=== PATIENT | female | born 1970 | race Caucasian/White ===

== ENCOUNTER 2017-12-24 10:06 | Inpatient (IN) | payer OTHER ==
[~2017-12-24] VITALS: Ht 165.1 cm; Wt 127.3 kg
[2017-12-24] MEDS ORDERED: LANTUS100 UNITS/ SUB-Q (11:17)
[2017-12-24] MEDS ORDERED: NOVOLOG100 UNIT/2 (11:17)
[2017-12-24] MEDS ORDERED: FIORICET PO (11:20)
[2017-12-24] MEDS ORDERED: FENTANYL1 EAC5 TD (11:21)
[2017-12-24] MEDS ORDERED: LEXAPRO20 MG PO (11:21)
[2017-12-24] MEDS ORDERED: NORCO 5-325 TA1 EACH PO (11:22)
[2017-12-24] MEDS ORDERED: LYRICA150 MG PO (11:22)
[2017-12-24] MEDS ORDERED: PROMETHAZINE HC25 M1 PO (11:22)
[2017-12-24] MEDS ORDERED: RANITIDINE HCL150 M1 PO (11:23)
[2017-12-24] MEDS ORDERED: TIZANIDINE HCL4 MG PO (11:23)
--- NOTE | 2017-12-24 13:30 | NUR ---
PT ARRIVED FROM ED VIA STRETCHER, FULL ASSIST TRANSFER TO HOSPITAL BED. PT IS ALERT AND ORIENTED, REPORTING 9/10 BACK, NECK, AND HEADACHE PAIN, MEDICATED WITH IV FENTANYL. RIGHT SIDED FACIAL DROOP NOTED WITH RIGHT SIDE FLACCID. SPEECH REMAINS INTACT. BEDSIDE SWALLOW EVAL COMPLETED, NO S/S OF DIFFICULTY SWALLOWING OR ASPIRATION. EYES PERRLA, MILD NYSTAGMUS NOTED OF BILETERAL EYES WHEN LOOKING TO LEFT. BARNES IN PLACE, DRAINING CLEAR YELLOW URINE. RIGHT CHEST PORT ACCESSED, FLUSHES WELL, BLOOD RETURN NOTED. DAUGHTER IN LAW AT BEDSIDE. CALL LIGHT WITHIN REACH.
--- NOTE | 2017-12-24 15:21 | NUR ---
MADE A ICE PACK FOR PATIENT.
--- NOTE | 2017-12-24 15:45 | NUR ---
PATIENT FINISHED WITH MEAL, DAUGHTER SALOME BROUGHT PATIENT A BLIZZARD FROM [employer], THIS CAREER REPRESENTATIVE CHECKED WITH RN JAMES TO SEE IF SHE COULD HAVE IT, PATIENT IS ON ADA DIET. RN AGREED, SINCE PATIENT EATS THIS ITEM AT HOME ON OCCASION. FRESH WATER ALSO GOVEN CALL LIGHT IN REACH
--- NOTE | 2017-12-24 16:10 | NUR ---
PATIENT LYING ON RIGHT SIDE, FAMILY IN ROOM. REPORTS SHE FELT A "POP" IN THE BACK OF HER HEAD, CRYING HEAVILY. RN JAMES NOTIFIED. THIS PSYCHOLOGICAL EXAMINER TOOK VITALS JAMES TALKED WITH PATIENT. CALL LIGHT IN REACH.
--- NOTE | 2017-12-24 16:32 | NUR ---
PT CALLED REPORTING THAT SHE MOVED AND FELT A "POP" IN HER NECK. IMMEDIATELY AFTER FELT A SEVERE 10/10 BURNING SENSATION IN HER HEAD, BLURRED VISION WITH BLACK SPOTS, AND TINGLING IN LEFT HAND. PT SPEECH STILL INTACT, MOVEMENT OF LEFT SIDE NORMAL STRENGTH. PT STILL HAS GOOD MOVEMENT OF NECK WITHOUT INCREASE OF PAIN. VS BP: 107/59, HR: 74, RR:24, O2 SAT: 100% ON RA. BG 71. PT APPEARS VERY ANXIOUS AND CRYING. NOTIFIED DR. GARRIDO, RECIEVED TELEPHONE ORDER FOR PRN ATIVAN. PT MEDICATED AT THIS TIME WITH ATIVAN AND FENTANYL. CALL LIGHT WITHIN REACH.
--- NOTE | 2017-12-24 17:10 | NUR ---
PATIENT LYING IN BED, EYES CLOSED. PATIENT MOANING LIGHTLY, REPEATING "IT HURTS I CAN'T TAKE THIS ANYMORE" VITALS AND I/OS CHARTED. BARNES EMPTIED. CALL LIGHT IN REACH NO OTHER NEEDS AT THIS TIME
--- NOTE | 2017-12-24 17:35 | NUR ---
PT IN BED APPEARS TO BE SLEEPING, EYES CLOSED, RESP EVEN AND LABORED, SNORES OCC.
--- NOTE | 2017-12-24 18:15 | NUR ---
PT REQUESTING PAIN MEDICATION FOR 03/10 HEAD/NECK/BACK PAIN. MEDICATED WITH IV FENTANYL. PT REPORTS THAT VISION CHANGES AND TINGLING OF LEFT HAND HAS BEGUN TO RESOLVE. PT REPORTS NAUSEA AND DRY HEAVING, NOTIFIED DR. GARRIDO. RECEIVED ORDER FOR PHENERGAN.
--- NOTE | 2017-12-24 18:46 | NUR ---
PT ALESSANDRO ADA DIET, ATE LARGE LUNCH AND DINNER, NO COUGHING, CHOKING, OR SIGNS OF ASPIRATION.
--- NOTE | 2017-12-24 18:59 | NUR ---
PT MEDICATED WITH PHENERGAN FOR C/O NAUSE AND DRY HEAVING. PT LYING IN BED MOAINING AND CRYING STATING "IT HURTS SO BAD, I JUST WANT IT TO STOP." PT RECIEVING FENTANYL HOURLY, REPOSITIONS INDEPENDENTLY, ROOM DARKENED, ICE BACK TO BACK/NECK. CALL LIGHT WITHIN REACH, DAUGHTER IN LAW AT BEDSIDE.
--- NOTE | 2017-12-24 19:00 | NUR ---
BEDSIDE REPORT RECEIVED FROM OFFGOING RN. PT RESTING IN BED, DAUGHTER IN LAW AT BEDSIDE. PT REQUESTING NEW ICE PACK FOR NECK, PROVIDED. REPORTS PAIN TO L SIDED NECK. PRN PAIN MEDICATION TO BE ADMINISTERED ORDERED.
--- NOTE | 2017-12-24 19:16 | NUR ---
PT HAVING EPISODE OF EXPRESSIVE APHASIA, ABLE TO UNDERSTAND OTHER AND FOLLOW VERBAL COMMANDS BUT SPEECH IS GARBLED AND UNDISCERNIBLE. NOTIFIED DR. GARRIDO.
--- NOTE | 2017-12-24 19:33 | EKG ---
[facility] [address] [place], [place] [address] Signed Normal sinus rhythm Normal ECG Confirmed by VANE GARRIDO MD ([id number]) on 12/24/2017 6:14:57 PM Electronically Signed By: VANE GARRIDO MD 12/24/17 1933 PATIENT NAME: PAOP GODFREY Kishor Electrocardiogram DATE OF : 72 PHYSICIAN: VANE GARRIDO MD REPORT #: [id number] REPORT IS CONFIDENTIAL AND NOT TO BE RELEASED WITHOUT AUTHORIZATION
--- NOTE | 2017-12-24 20:03 | NUR ---
PT UTILIZES CALL LIGHT. DAUGHTER IN LAW AT BEDSIDE. PT STATES THAT SHE IS HAVING BURNING PAIN TO L SIDED NECK. PT ALSO REPORTING PRESSURE IN HER NECK, POINTS TO MIDDLE OF THROAT AREA. PT REQUESTS ADDITIONAL PAIN MEDICATION, ADMINISTERED ORDERED. PT STATES THAT SHE CAN FEEL PAIN MEDICATION WORKING. PT DENIES NAUSEA AT THIS TIME. PT ASSESSMENT COMPLETE. PT UNABLE TO STATE YEAR ACCURATELY. R SIDED FACIAL DROOP PRESENT, R ARM AND LEG CONTINUE TO BE FLACCID WITH NUMBNESS PRESENT. TELE #9, SR, HR 68. PT HAVING DRY COUGH, STATES IT IS RELATED TO PRESSURE IN NECK. PT ALSO REPORTS THAT SHE IS CHOKING ON WATER WITH PRESSURE AND PAIN IN NECK, PT WILL ATTEMPT TO TAKE DRINK OF WATER AFTER PAIN MEDICATION HAS TAKEN EFFECT. PT UNDERSTANDS THAT IF SHE CONTINUES TO CHOKE ON WATER SHE WILL HAVE DIET MODIFIED. PT AND DAUGHTER IN LAW DENY FURTHER NEEDS AT THIS TIME. UNDERSTAND TO USE CALL LIGHT FOR NEEDS. CALL LIGHT WITHIN REACH, BEDALARM IN PLACE. ROOM IN VIEW OF NURSES STATION.
--- NOTE | 2017-12-24 20:45 | NUR ---
PT RESTING IN BED WITH EYES CLOSED. RESPIRATIONS EVEN AND UNLABORED. PT WAKES EASILY. STATES THAT PAIN IS DECREASED. PT REPORTS THAT PRESSURE CONTINUES TO BE PRESENT IN HER THROAT BUT IS ALSO DECREASED. PT TAKES DRINK OF WATER SAFELY WITH NO S/SX OF CHOKING PRESENT. PT DENIES NEEDS AT THIS TIME. CALL LIGHT WITHIN REACH.
--- NOTE | 2017-12-24 22:06 | NUR ---
PT LYING IN BED WHIMPERING. RATES PAIN 9/10 TO NECK. PRN FENTANYL ADMINISTERED. PT STATES THAT SHE CAN FEEL IT "TAKING THE EDGE OFF". DENIES OTHER NEEDS AT THIS TIME. CALL LIGHT WITHIN REACH. PT'S DAUGHTER INLAW STAYING THE NIGHT, PRESENT AT BEDSIDE.
--- NOTE | 2017-12-25 00:09 | NUR ---
CHARGE NURSE NOTE:. FAMILY IN ROOM, PT RESTING, EYES CLOSED, NO RESP DISTRESS
--- NOTE | 2017-12-25 00:25 | NUR ---
PT UTILIZED CALL LIGHT, REPORTS TO INSURANCE ASSOCIATE THAT HER "THROAT IS TIGHT" AGAIN. PT ASSESSMENT COMPLETE. LUNG SOUNDS CLEAR THROUGHOUT, RR 16. PT FALLING ASLEEP THROUGHOUT ASSESSMENT. WAKES EASILY TO VOICE. PT REPORTS THAT SHE HAS A KNOWN MASS IN HER THROAT THAT IS QUESTIONABLE TO BE LYMPHOMA, PT AGREES THAT THIS MAY BE WHAT IS CAUSING THE "TIGHT" FEELING IN HER THROAT. R SIDED FACIAL DROOP REMAINS PRESENT, DOES R ARM AND LEG FLACCIDITY. PT REPORTS CONTINUED NUMBNESS TO AFFECTED EXTREMITIES. R ARM ELEVATED ON PILLOW, PT REPORTS EXPERIENCING EDEMA WHEN THESE EPISODES HAVE OCCURED IN THE PAST. TRACE EDEMA NOTED TO R HAND. PT DENIES FURTHER NEEDS AT THIS TIME. CALL LIGHT WITHIN REACH. DAUGHTER IN LAW CONTINUES TO BE PRESENT AT BEDSIDE.
--- NOTE | 2017-12-25 03:15 | NUR ---
PT RESTING IN BED WITH EYES CLOSED. IV PUMP ALARMING, PT DOES NOT WAKE TO ALARM OR ICU MANAGER IN ROOM. CALL LIGHT WITHIN PT REACH, DAUGHTER IN LAW SLEEPING AT BEDSIDE.
--- NOTE | 2017-12-25 04:34 | NUR ---
PT LYING IN BED WHIMPERING. RATES PAIN 9/10 TO BACK/NECK AREA. PRN FENTANYL ADMINISTERED. PT STATES THAT SHE CAN FEEL IT WORKING. PT ASSESSMENT COMPLETE. PT'S R SIDE REMAINS FLACCID, AND PT CONTINUES TO REPORT FEELING NUMBNESS AND TINGLING TO R SIDE. BARNES DRAINING CLEAR YELLOW URINE. PT DENIES OTHER NEEDS AT THIS TIME. CALL LIGHT WITHIN REACH. DAUGHTER INLAW AWAKE AT BEDSIDE.
--- NOTE | 2017-12-25 05:37 | NUR ---
PT RESTING IN BED WITH EYES CLOSED. RESPIRATIONS EVEN AND UNLABORED. PT APPEARS TO BE SLEEPING. PT DOES NOT WAKE WHILE ELECTRONIC DATA INTERCHANGE SPECIALIST IN ROOM. CALL LIGHT WITHIN PT'S ROOM.
--- NOTE | 2017-12-25 05:45 | NUR ---
PT PAINFUL THROUGHOUT THE SHIFT. SLEPT OFF AND ON. PHENERGAN X 1 FOR NAUSEA. R FACIAL DROOP, R ARM AND R LEG FLACCIDITY/NUMBNESS CONTINUES TO BE PRESENT. BARNES CATH DRAINING CLEAR YELLOW URINE. PT NOT OOB THIS SHIFT. PORT ACCESSED, FLUSHES WELL AND GOOD BLOOD RETURN. NS @ 125.
--- NOTE | 2017-12-25 06:52 | NUR ---
PT C/O PAIN, RATES 03/10. PRN FENTANYL ADMINISTERED. PT DENIES OTHER NEEDS AT THIS TIME. CALL LIGHT WITHIN REACH.
--- NOTE | 2017-12-25 08:00 | NUR ---
PT IN BED CRYING, C/O HEAD/NECK PAIN 10/, MEDICATED WITH IV FENTANYL AND ATIVAN. NEURO ASSESSMENT UNCHANGED FROM YESTERDAY. RIGHT ARM AND LEG FLACCID, RIGHT FACIAL DROOP, NO SPEECH OR SWALLOW DEFICITS, PT REPORTS BLACK SPOTS IN VISION. PUPILS EQUAL AND REACTIVE. PT REPORTS NUMBESS OF ENTIRE RIGHT SIDE INCLUDING FACE. RIGHT CHEST PORT INFUSING WELL, GOOD BLOOD RETURN, DRESSING CDI. PT SLOWLY EATING BREAKFAST INDEPENDENTLY. DENIES NAUSEA. CALL LIGHT WITHIN REACH.
--- NOTE | 2017-12-25 08:01 | NUR ---
PATIENT SITTING UP IN BED, BREAKFAST IN FRONT OF HER. CALL LIGHT IN REACH. NO OTHER NEEDS.
--- NOTE | 2017-12-25 08:55 | NUR ---
DR. GARRIDO ROUNDING ON PT. PT CRYING UNCONSOLABLY. APPLIED WARM K-PACK TO NECK PER PT REQUEST. PT STATES SHE RECIEVED DILAUDID FOR THIS CONDITION PREVIOUSLY AND SPOKE WITH DR. GARRIDO ABOUT CHANGING HER MED ORDERS.
--- NOTE | 2017-12-25 09:30 | NUR ---
PT MEDICATED WITH 1MG IV DILAUDID. PT STATES "IT FEELS MUCH BETTER." LYING IN BED WITH LIGHTS OFF, CRYING INTERMITTENTLY.
--- NOTE | 2017-12-25 10:31 | NUR ---
THIS MANUFACTURING SUPERVISOR 2ND SHIFT AND MANUFACTURING SUPERVISOR 2ND SHIFTRogers VERNON IN FOR VITALS AND I/OS. BARNES EMPTIED. CALL LIGHT IN REACH
--- NOTE | 2017-12-25 10:35 | NUR ---
PT MEDICATED WITH 1MG IV DILAUDID. CRYING STATES "I JUST WISH THIS WOULD STOP, IT HURTS SO BAD."
--- NOTE | 2017-12-25 11:45 | NUR ---
PT TEARFUL AND ANXIOUS. PT REPORT OF NOT BEING ABLE TO FEEL OR MOVE HER LEFT SIDE. ASSESSED, PT UNABLE TO MOVE HAND OR FOOT. VSS. BLOOD GLUCOSE 116. PT STATES SHE WAS ATTEMPTING TO GET COMFORTABLE AND FELT A POP THEN SHOOTING PAINS UP HER NECK INTO HER HEAD. MD CALLED AND NOTIFIED OF CHANGE IN PT CONDITION. MD TO BEDSIDE TO EVALUATE PT. 1MG IV DILAUDID GIVEN FOR PAIN. MD VERBAL ORDER FOR STAT CT OF C-SPINE AND HEAD. COOKER SYRUP RN NOTIFIED RADIOLOGY.
--- NOTE | 2017-12-25 12:00 | NUR ---
BG 116
--- NOTE | 2017-12-25 12:00 | NUR ---
[facility] CALLED FOR PT TRASNPORT. STATES THEY SHOULD ARRIVE IN APPROX. 15 MINUTES.
--- NOTE | 2017-12-25 12:08 | NUR ---
BARNES EMPTIED, PATIENT CRYING AND SPEECH IS SLURRED. PATIENT ASKED THIS LIME VAT TENDER TO WIPE HER FACE AND EYES THEY WERE VERY ITCHY. PATIENT STILL UNABLE TO MOVE RIGHT ARM. CALL LIGHT IN REACH
--- NOTE | 2017-12-25 12:18 | NUR ---
SPOKE WITH DAUGHTER SALMA AND UPDATED ON TRANSFER TO [facility].
--- NOTE | 2017-12-25 12:47 | NUR ---
1200:ASSESSED PT. PT REMAINS VERY TEARFUL AND ANXIOUS. COMPLAINS OF SEVERE BURNING PAIN AND PRESSURE IN HEAD/NECK AND BEHIND HER EYES AFTER HAVING ANOTHER "POP" SENSATION IN HER NECK. PT REPORTS DOUBLE VISION WITH BLACK SPOTS AND NAUSEA. PT CURRENTLY HAS NO SPEECH DEFICITS. NOTED THAT BOTH RIGHT AND LEFT SIDE ARE NOW COMPLETELY FLACCID WITH LEFT AND RIGHT FACIAL DROOP, RIGHT SIDED MORE PROMINENT. PT REPORTS NUMBNESS/LOSS OF SENSATION OF ALL EXTREMITIES AND FACE. EYES PERRLA. VSS AND WNL FOR PT, PT SATTING 98% ON RA, PLACED ON 2L NC, PT TAKING SHORT HYPERVENTILATING BREATHS, LUNGS CLEAR. DR. GARRIDO HAS ASSESSED AND PT TO BE TRANSPORTED TO [facility] ER. 1235: PT FULL ASSIST TRANSFER TO STRETCHER WITH ASSISTANCE OF [facility]. NS INFUSING IN RIGHT CHEST PORT, PT ON 2LNC. BARNES INTACT, DRAINING WELL. ALL PERSONAL BELONGINGS TRANSPORTED WITH PT. VS BP: 109/39, HR:73, RR:22, TEMP 98.2, SATTING 99% ON 2LNC. 1235: TELEPHONE REPORT GIVEN TO NAUN RODRIGUEZ AT [facility] ED.
--- NOTE | 2017-12-25 13:05 | NUR ---
SLURRED SPEECH BEGAN UPON ARRIVAL OF [facility].
== END 2017-12-25 12:35 | disposition short-term general hospital (02) | DRG 102 ==
LOC: ED 10:06 → MS 10:07 → EDBD 10:07 → MS 12-25 08:48
PROVIDERS: ADMIT Internal Medicine
DX: G43.409 Hemiplegic migraine, not intractable, without status migrainosus (principal); G82.50 Quadriplegia, unspecified; I62.9 Nontraumatic intracranial hemorrhage, unspecified; R29.810 Facial weakness; M32.9 Systemic lupus erythematosus, unspecified; E11.9 Type 2 diabetes mellitus without complications; G89.4 Chronic pain syndrome; Z85.830 Personal history of malignant neoplasm of bone; Z79.899 Other long term (current) drug therapy; Z79.891 Long term (current) use of opiate analgesic; Z79.4 Long term (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; Z88.5 Allergy status to narcotic agent; Z88.7 Allergy status to serum and vaccine; Z88.8 Allergy status to other drugs, medicaments and biological substances
CPT/HCPCS: 36415; 70450; 70496; 70498; 72125; 80048; 80053; 81001; 83735; 84484; 85025; 85610; 93005; 93010; 96372; 96374; 96375; 96376; 99285; G0378; J1170; J1650; J2060; J2550; J3010; J7030; J7120; Q9967

== ENCOUNTER 2018-01-03 04:42 | Emergency (ER) | payer OTHER ==
[~2018-01-03] VITALS: Ht 165.1 cm; Wt 127.0 kg
[~2018-01-03 04:42] MED LIST: FENTANYL1 EAC5 TD; FIORICET PO; LANTUS100 UNITS/ SUB-Q; LEXAPRO20 MG PO; LYRICA150 MG PO; NORCO 5-325 TA1 EACH PO; NOVOLOG100 UNIT/2; PROMETHAZINE HC25 M1 PO; RANITIDINE HCL150 M1 PO; TIZANIDINE HCL4 MG PO
== END 2018-01-03 11:04 | disposition short-term general hospital (02) ==
LOC: ED 04:42
DX: G43.419 Hemiplegic migraine, intractable, without status migrainosus (principal); E11.9 Type 2 diabetes mellitus without complications; Z88.7 Allergy status to serum and vaccine; Z88.6 Allergy status to analgesic agent; Z88.8 Allergy status to other drugs, medicaments and biological substances; Z79.4 Long term (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; Z79.899 Other long term (current) drug therapy
CPT/HCPCS: 96372; 96374; 96375; 96376; 99285; J1170; J1815; J2550; J7030

== ENCOUNTER 2023-07-18 14:19 | Emergency (ER) | payer MEDICARE, OTHER ==
[~2023-07-18] VITALS: Ht 165.1 cm; Wt 132.7 kg
[~2023-07-18 14:19] MED LIST changes: +NOVOLOG100 UNIT/2 SUB-Q
--- OUTSIDE RECORDS SUMMARY | 2023-07-18 14:26 | XMS ---
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 - 2 Visits in 30 Days CARE PROVIDERS -, Alfredo Padilla- Dentist: Library Specialist [facility] PHONE: [phone] DIANNE VALENCIA Internal Medicine Current PHONE: Unknown DENISA BOWLING Family [facility] Current PHONE: Unknown IMANI DEWEY Internal Medicine Current PHONE: Unknown Magui has no Care Guidelines for this patient. Sherry VISIT COUNT (12 MO.) Alfonso Zimmerman ([facility]) 2 ERIKA Melton 2 Peña EduardJasiel [address] [place], [place] [address] TOTAL 18 NOTE: Visits indicate total known visits. ED/UCC VISIT TRACKING (12 MO.) 07/18/2023 14:20 ERIKA Jacques [place] TYPE: Emergency COMPLAINT: - ABD/BACK PAIN, LEGS SWOLLEN 07/18/2023 09:32 Alfonso [place] ([facility]) TYPE: Emergency DIAGNOSES: - Constipation, unspecified - Abdominal Pain - Followup Medical Problem - Kidney Pain 04/17/2023 15:18 [facility] TYPE: Emergency COMPLAINT: - Pre-arrival: Boarder/Cellulitis DIAGNOSES: - Cutaneous abscess, unspecified - Abscess - Cellulitis / abscess 04/17/2023 03:26 Alfonso [place] ([facility]) TYPE: Emergency DIAGNOSES: - Cellulitis, unspecified - Osteomyelitis of vertebra, site unspecified - Abscess (Complicated) - Bug bite 04/05/2023 14:00 [facility] ID TYPE: Emergency DIAGNOSES: - Epigastric pain - Chest Pain 02/25/2023 16:[address] [facility] [address] [facility] TYPE: Emergency COMPLAINT: - CHEST PAIN DIAGNOSES: - Allergy status to narcotic agent - Allergy status to other drugs, medicaments and biological substances - Allergy status to serum and vaccine - Chest pain, unspecified - Essential (primary) hypertension - [facility] (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 - Obesity, unspecified - Other shelter (current) drug therapy - Type 2 diabetes mellitus without complications 02/21/2023 00:53 Alfonso [place] ([employer] [facility]) TYPE: Emergency DIAGNOSES: - Contusion of right lower leg, subsequent encounter - Contusion of right upper arm, initial encounter - fall 01/17/2023 19:01 Alfonso [place] ([employer] [facility]) TYPE: Emergency DIAGNOSES: - Chest pain, unspecified - Nausea - Unspecified abdominal pain - Chest Pain 01/05/2023 16:16 Alfonso [place] ([facility] [facility]) TYPE: Emergency DIAGNOSES: - Contusion of right knee, initial encounter - Fall on same level, unspecified, initial encounter - Sprain of other ligament of left ankle, initial encounter - Fall - Knee Injury 12/04/2022 09:17 Alfonso [place] ([employer] [facility]) TYPE: Emergency DIAGNOSES: - Sprain of unspecified site of right knee, initial encounter - Knee Pain - Weakness 10/24/2022 18:51 Alfonso [place] ([employer] [facility]) TYPE: Emergency DIAGNOSES: - Sprain of unspecified parts of thorax, initial encounter - Back Pain - Follow up Medical - Followup Medical Problem 10/23/2022 12:55 Alfonso DesouzaDania [place] ([facility] ) TYPE: Emergency DIAGNOSES: - Contusion of left front wall of thorax, initial encounter - Strain of muscle, fascia and tendon at neck level, initial encounter - Unspecified sprain of left elbow, initial encounter - Unspecified sprain of left shoulder joint, initial encounter - Arm Injury - Left Side Pain 09/26/2022 23:02 Alfonso DesouzaDania [place] ([facility]) TYPE: Emergency DIAGNOSES: - Chest pain, unspecified - Weakness - Chest Pain - Chest Pain / Right Sided Weakness 09/15/2022 15:58 Alfonso DesouzaDania [place] ([facility]) TYPE: Emergency DIAGNOSES: - Unspecified convulsions - Weakness - Facial Droop - Headache (Adult - New Onset Or New Symptoms) - Seizure (Adult - Prior Hx Of) - Stroke Like Symptoms 09/03/2022 04:00 [facility] TYPE: Emergency COMPLAINT: - EMS DIAGNOSES: - Chest pain, unspecified - Chest Pain - Chest Pain Rule out 09/02/2022 11:42 [facility] TYPE: Emergency DIAGNOSES: - Chest pain, unspecified - CHEST PAIN 08/12/2022 20:42 Alfonso [place] ([employer]) TYPE: Emergency DIAGNOSES: - Cerebral infarction due to thrombosis of unspecified cerebral artery - Flaccid hemiplegia affecting right dominant side - Hemiplegic migraine, intractable, with status migrainosus - Altered Mental Status - Stroke-like symptoms 08/02/2022 20:54 Alfonso [place] ([employer] [facility]) TYPE: Emergency DIAGNOSES: - Chest pain, unspecified - Chest Pain INPATIENT VISIT TRACKING (12 MO.) 04/17/2023 15:18 [facility] TYPE: General Medicine COMPLAINT: - Pre-arrival: Boarder/Cellulitis DIAGNOSES: - Cutaneous abscess, unspecified 09/15/2022 15:58 Alfonso CAPELLAN ([facility]) TYPE: Internal Medicine DIAGNOSES: - Acute cystitis without hematuria - Hemiplegic migraine, not intractable, without status migrainosus - Personal history of other diseases of the nervous system and sense organs - Unspecified convulsions - Weakness 09/03/2022 11:15 [facility] TYPE: Cardiology DIAGNOSES: - Chest pain, unspecified - [facility] (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 - Type 2 diabetes mellitus with hyperglycemia 08/12/2022 20:42 Alfonso [place] ([facility]) TYPE: Critical Care DIAGNOSES: - Cerebral infarction due to thrombosis of unspecified cerebral artery - Flaccid hemiplegia affecting right dominant side - Hemiplegic migraine, intractable, with status migrainosus [email or web address]
[2023-07-18 18:02] LABS: BASOPHILS 0.9 % (0-2); EOSINOPHILS 2.7 % (0-6); HEMATOCRIT 35.2 % (35.0-50.0); HEMOGLOBIN 11.9 g/dL (12.0-18.0); MCH 30.4 (27-36); MCHC 33.7 g/dl (30-36); MCV 90.2 fl (81-99); MONOCYTES 9.7 % (0-12); NEUTROPHILS 58.7 % (39-80); PLATELET COUNT 237 K/uL (140-440); RBC 3.91 M/ul (4.3-5.7); RDW 13.8 (10.5-15.0)
[2023-07-18 18:25] LABS: ALBUMIN 3.2 g/dL (3.4-5.0); ALBUMIN/GLOBULIN RATIO 0.94 (1.1-2.4); ANION GAP 13.7 (7-21); BILIRUBIN, TOTAL 0.3 ng/dL (0.2-1.0); BUN/CREATININE RATIO 18.75 (6.0-28.6); CALCIUM 8.1 mg/dL (8.5-10.1); CREATININE, SERUM 0.64 mg/dL (0.55-1.02); MAGNESIUM 1.9 mg/dL (1.8-2.4); POTASSIUM 3.7 mmol/L (3.5-5.1); PROTEIN, TOTAL 6.6 g/dL (6.4-8.2)
[2023-07-18 20:22] VITALS: BP 138/65
== END 2023-07-18 20:23 | disposition home or self-care (01) ==
LOC: ED 14:19
PROVIDERS: Emergency Medicine
DX: R10.30 Lower abdominal pain, unspecified (principal); K59.00 Constipation, unspecified; R60.0 Localized edema; E11.9 Type 2 diabetes mellitus without complications; M32.9 Systemic lupus erythematosus, unspecified; Z79.4 Long term (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; Z79.899 Other long term (current) drug therapy; Z88.8 Allergy status to other drugs, medicaments and biological substances; Z88.7 Allergy status to serum and vaccine; Z88.5 Allergy status to narcotic agent; Z91.041 Radiographic dye allergy status
CPT/HCPCS: 36415; 74176; 80053; 83690; 83735; 83880; 85025; J1200; J1940

== ENCOUNTER 2023-08-22 18:19 | Emergency (ER) | payer OTHER, MEDICARE ==
[~2023-08-22] VITALS: Ht 165.1 cm; Wt 132.4 kg
--- OUTSIDE RECORDS SUMMARY | 2023-08-22 19:26 | XMS ---
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 No recent Security Events currently on file CRITERIA MET - 6 ED Visits in 6 Months - [facility] - 2 Visits in 30 Days CARE PROVIDERS -, Alfredo Padilla- Dentist: Unix Analyst [facility] PHONE: [phone] [facility] PHONE: [phone] DIANNE VALENCIA Internal Medicine Current PHONE: Unknown DENISA BOWLING [facility] Current PHONE: Unknown IMANI DEWEY Internal Medicine Current PHONE: Unknown Magui has no Care Guidelines for this patient. EAlex VISIT COUNT (12 MO.) 11 Mary Zimmerman ([facility]) 3 [facility] 2 Travis Sifuentes 1 [facility] 1 [facility] [place] TOTAL 18 NOTE: Visits indicate total known visits. ED/UCC VISIT TRACKING (12 MO.) 08/22/2023 18:19 E[place]KA [place] TYPE: Emergency COMPLAINT: - BACK PAIN 07/26/2023 11:31 Mary CAPELLAN ([facility]) TYPE: Emergency DIAGNOSES: - Zoster without complications - dizzy - Followup Medical Problem 07/18/2023 14:20 ERIKA [place] TYPE: Emergency COMPLAINT: - ABD/BACK PAIN, LEGS SWOLLEN DIAGNOSES: - Allergy status to narcotic agent - Allergy status to other drugs, medicaments and biological substances - Allergy status to serum and vaccine - Constipation, unspecified - Localized edema - shelter (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 - Lower abdominal pain, unspecified - Other buttermaker helper (current) drug therapy - Radiographic dye allergy status - Systemic lupus erythematosus, unspecified - Type 2 diabetes mellitus without complications 07/18/2023 09:32 Mary DesouzaDania [place] ([facility]) TYPE: Emergency DIAGNOSES: - Constipation, unspecified - Abdominal Pain - Followup Medical Problem - Kidney Pain 04/17/2023 15:18 [facility] [place] TYPE: Emergency COMPLAINT: - Pre-arrival: Boarder/Cellulitis DIAGNOSES: - Cutaneous abscess, unspecified - Abscess - Cellulitis / abscess 04/17/2023 03:26 Mary DesouzaDania [place] ([facility] ) TYPE: Emergency DIAGNOSES: - Cellulitis, unspecified - Osteomyelitis of vertebra, site unspecified - Abscess (Complicated) - Bug bite 04/05/2023 14:00 [facility] ID TYPE: Emergency DIAGNOSES: - Epigastric pain - Chest Pain 02/25/2023 16:33 ERIKA Valentino TYPE: Emergency COMPLAINT: - CHEST PAIN DIAGNOSES: - Allergy status to narcotic agent - Allergy status to other drugs, medicaments and biological substances - Allergy status to serum and vaccine - Chest pain, unspecified - Essential (primary) hypertension - shelter (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 - Obesity, unspecified - Other penitentiary (current) drug therapy - Type 2 diabetes mellitus without complications 02/21/2023 00:53 Mary [place] ([employer]) TYPE: Emergency DIAGNOSES: - Contusion of right lower leg, subsequent encounter - Contusion of right upper arm, initial encounter - fall 01/17/2023 19:01 Mary [place] ([employer]) TYPE: Emergency DIAGNOSES: - Chest pain, unspecified - Nausea - Unspecified abdominal pain - Chest Pain 01/05/2023 16:16 Mary [place] ([employer]) TYPE: Emergency DIAGNOSES: - Contusion of right knee, initial encounter - Fall on same level, unspecified, initial encounter - Sprain of other ligament of left ankle, initial encounter - Fall - Knee Injury 12/04/2022 09:17 Mary [place] ([employer]) TYPE: Emergency DIAGNOSES: - Sprain of unspecified site of right knee, initial encounter - Knee Pain - Weakness 10/24/2022 18:51 Mary [place] ([facility]) TYPE: Emergency DIAGNOSES: - Sprain of unspecified parts of thorax, initial encounter - Back Pain - Follow up Medical - Followup Medical Problem 10/23/2022 12:55 Mary [place] ([facility]) TYPE: Emergency DIAGNOSES: - Contusion of left front wall of thorax, initial encounter - Strain of muscle, fascia and tendon at neck level, initial encounter - Unspecified sprain of left elbow, initial encounter - Unspecified sprain of left shoulder joint, initial encounter - Arm Injury - Left Side Pain 09/26/2022 23:02 Mary [place] ([facility]) TYPE: Emergency DIAGNOSES: - Chest pain, unspecified - Weakness - Chest Pain - Chest Pain / Right Sided Weakness 09/15/2022 15:58 Mary Mehrdad [place] ([facility]) TYPE: Emergency DIAGNOSES: - Unspecified convulsions - Weakness - Facial Droop - Headache (Adult - New Onset Or New Symptoms) - Seizure (Adult - Prior Hx Of) - Stroke Like Symptoms 09/03/2022 04:00 [facility] TYPE: Emergency COMPLAINT: - EMS DIAGNOSES: - Chest pain, unspecified - Chest Pain - Chest Pain Rule out 09/02/2022 11:42 [facility] TYPE: Emergency DIAGNOSES: - Chest pain, unspecified - CHEST PAIN INPATIENT VISIT TRACKING (12 MO.) 04/17/2023 15:18 [facility] TYPE: General Medicine COMPLAINT: - Pre-arrival: Boarder/Cellulitis DIAGNOSES: - Cutaneous abscess, unspecified 09/15/2022 15:58 Mary [place] ([facility]) TYPE: Internal Medicine DIAGNOSES: - Acute cystitis without hematuria - Hemiplegic migraine, not intractable, without status migrainosus - Personal history of other diseases of the nervous system and sense organs - Unspecified convulsions - Weakness 09/03/2022 11:15 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
[2023-08-22 19:31] LABS: HEMOGLOBIN 14.1 g/dL (12.0-18.0)
[2023-08-22 19:34] LABS: BASOPHILS 1.4 % (0-2); EOSINOPHILS 1.9 % (0-6); HEMATOCRIT 41.9 % (35.0-50.0); LYMPHOCYTES 25.5 % (24-44); MCH 29.9 (27-36); MCHC 33.6 g/dl (30-36); MCV 89.1 fl (81-99); NEUTROPHILS 64.2 % (39-80); PLATELET COUNT 277 K/uL (140-440); RBC 4.71 M/ul (4.3-5.7); RDW 13.9 (10.5-15.0)
[2023-08-22 19:45] LABS: ALBUMIN 3.2 g/dL (3.4-5.0); ALBUMIN/GLOBULIN RATIO 0.74 (1.1-2.4); ANION GAP 16.7 (7-21); BILIRUBIN, TOTAL 0.3 ng/dL (0.2-1.0); BUN/CREATININE RATIO 12.67 (6.0-28.6); CALCIUM 8.9 mg/dL (8.5-10.1); CREATININE, SERUM 0.71 mg/dL (0.55-1.02); POTASSIUM 3.7 mmol/L (3.5-5.1); PROTEIN, TOTAL 7.5 g/dL (6.4-8.2)
[2023-08-22 21:24] VITALS: BP 116/82
== END 2023-08-22 21:15 | disposition short-term general hospital (02) ==
LOC: ED 18:19
PROVIDERS: Emergency Medicine
DX: R29.2 Abnormal reflex (principal); M54.9 Dorsalgia, unspecified; R15.9 Full incontinence of feces; R32 Unspecified urinary incontinence; R29.898 Other symptoms and signs involving the musculoskeletal system; M32.9 Systemic lupus erythematosus, unspecified; E11.9 Type 2 diabetes mellitus without complications; Z91.041 Radiographic dye allergy status; Z88.8 Allergy status to other drugs, medicaments and biological substances; Z88.7 Allergy status to serum and vaccine; Z88.6 Allergy status to analgesic agent; Z88.5 Allergy status to narcotic agent; Z79.4 Long term (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; Z79.899 Other long term (current) drug therapy
CPT/HCPCS: 36415; 72131; 80053; 85025; 96374; 96375; 96376; 99284-25; J1170; J1200

== ENCOUNTER 2023-09-10 17:08 | Emergency (ER) | payer MEDICARE, OTHER ==
[~2023-09-10] VITALS: Ht 165.1 cm; Wt 126.5 kg
--- OUTSIDE RECORDS SUMMARY | ~2023-09-10 | XMS | Continuity of Care Document ---
Demographics + + + | Address | [address] | | | [place] [address] | + + + | Preferred Language | Unknown | + + + | Marital Status | | + + + | Jain Affiliation | Unknown | + + + | Race | Unknown | + + + | Ethnic Group | Unknown | + + + Author + + + | Author | [facility] | + + + | Organization | [facility] | + + + | Address | [address] | | | [place] [address] | + + + | Phone | | + + + Care Team Providers + + + + | Care Textile Artist Name | Role | Phone | + + + + Unavailable | Unavailable | + + + + Unavailable | Unavailable | + + + + Allergies and Intolerances + + + + + + | date | description | facility | reaction | severity | + + + + + + | 2023-09-06 | Inapsine 2.5 | [facility] | (no reaction) | Active | | 00:00 | MG/ML Injection | [facility] | | | | | Solution | | | | + + + + + + | 2023-09-06 | Zomig | [facility] | (no reaction) | Active | | 00:00 | | [facility] | | | + + + + + + | 2023-09-06 | Reglan 10 MG | [facility] | (no reaction) | Active | | 00:00 | Oral Tablet | [facility] | | | + + + + + + | 2023-09-06 | Zofran 2 MG/ML | [facility] | (no reaction) | Active | | 00:00 | Intravenous | [facility] | | | | | Solution | | | | + + + + + + | 2023-09-06 | Zomig 2.5 MG | [facility] | (no reaction) | Active | | 00:00 | Oral Tablet | [facility] | | | + + + + + + | 2023-09-06 | Toradol 15 | [facility] | (no reaction) | Active | | 00:00 | MG/ML Injection | [facility] | | | | | Solution | | | | + + + + + + | 2023-09-06 | Reglan | [facility] | (no reaction) | Active | | 00:00 | | [facility] | | | + + + + + + | 2023-09-06 | TraMADol 50 mg | [facility] | (no reaction) | Active | | 00:00 | Oral Tablet | [facility] | | | + + + + + + Encounters No information. Functional Status No information. Immunizations No information. Medications + + + + | date | description | facility | + + + + | 2023-09-04 00:00 | HYDROmorphone HCl 2 MG | [facility] | | | Oral Tablet | | + + + + | 2023-07-29 00:00 | 3 ML insulin aspart, human | [facility] | | | 100 UNT/ML Pen Injector | | | | [NovoLog] | | + + + + | 2023-07-28 00:00 | Lantus SoloStar 100 | [facility] | | | UNIT/ML Subcutaneous | | | | Solution Pen-injector | | + + + + | 2023-09-06 00:00 | EpiPen 2-Homer 0.3 MG/0.3ML | [facility] | | | Injection Solution | | | | Auto-injector | | + + + + | 2023-07-29 00:00 | NovoLOG FlexPen ReliOn 100 | [facility] | | | UNIT/ML Subcutaneous | | | | Solution Pen-injector | | + + + + | 2023-07-30 00:00 | tizanidine 4 MG Oral | [facility] | | | Tablet | | + + + + | 2023-07-30 00:00 | tiZANidine HCl 4 MG Oral | [facility] | | | Tablet | | + + + + | 2023-09-06 00:00 | [id number] 0.3 ML | [facility] | | | epinephrine 1 MG/ML | | | | Auto-Injector [Epipen] | | + + + + | 2023-07-28 00:00 | 3 ML insulin glargine 100 | [facility] | | | UNT/ML Pen Injector | | | | [Lantus] | | + + + + | 2023-09-04 00:00 | hydromorphone | [facility] | | | hydrochloride 2 MG Oral | | | | Tablet | | + + + + Problems + + + + | date | description | facility | + + + + | 2023-09-06 00:00 | Morbid obesity (disorder) | [facility] | | | | | + + + + | 2023-09-06 00:00 | DIABETES W/NEUROLOGICAL | [facility] | | | MANIFESTATIONS,TYPEII | | + + + + | 2023-09-06 00:00 | DM W/UNSPEC COMPLICATION, | [facility] | | | TYPE I | | + + + + | 2023-09-06 00:00 | OBESITY, MORBID, BMI >39 | [facility] | | | | | + + + + | 2023-09-06 00:00 | POSTRAUMATIC STRESS | [facility] 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 | | | disorder (disorder) | | + + + + | 2023-09-06 00:00 | Polyneuropathy due to | [facility] | | | diabetes mellitus | | | | (disorder) | | + + + + | 2023-09-06 00:00 | Diabetes Mellitus Type 1 | [facility] | | | with Complication | | + + + + | 2023-09-06 00:00 | Polyneuropathy Diabetic | [facility] | | | | | + + + + | 2023-09-06 00:00 | Obesity Morbid | [facility] | | | | | + + + + | 2023-09-06 00:00 | Post-traumatic Stress | [facility] | | | Disorder | | + + + + Procedures + + + + | date | description | facility | + + + + | 2023-09-06 00:00 | Tobacco use assessed | [facility] | | | | | + + + + | 2023-09-06 00:00 | Colon/Rectal Surgery | [facility] | | | | | + + + + | 2023-09-06 00:00 | Obstetrics/Gynecological | [facility] | | | Surgery | | + + + + | 2023-09-06 00:00 | Neurological Surgery | [facility] | | | | | + + + + | 2023-09-06 00:00 | Orthopedic Surgery | [facility] | | | | | + + + + | 2023-09-06 00:00 | Ophthalmic Surgery | [facility] | | | | | + + + + | 2023-09-06 00:00 | Controlling Blood | [facility] | | | Pressure; Most recent | | | | Systolic <130mm Hg | | + + + + | 2023-09-06 00:00 | Controlling BP; Most | [facility] | | | recent Diastolic BP < 80mm | | | | Hg | | + + + + Results/Labs +--------+--------+ +---------+--------+---------+ | test | date | facility | value | unit | notes | +--------+--------+ +---------+--------+---------+ + + | Result panel 1 | + + + + + + + + + | No Results | (no date) | [facility] | No Results | (missing) | (missing) | | | | [facility] | | | | | | | [facility] | | | | + + + + + + + Social History + + + + | date | description | facility | + + + + | 2023-09-06 00:00 | Unknown if ever smoked | [facility] | | | | | + + + + Vital Signs + + + +---------+ | date | measurement | value | units | + + + +---------+ | 2023-09-06 00:00 | BMI | 46.9 | 1 | + + + +---------+ | 2023-09-06 00:00 | BP_diastolic | 78 | mmHg | + + + +---------+ | 2023-09-06 00:00 | BP_systolic | 122 | mmHg | + + + +---------+ | 2023-09-06 00:00 | BSA | 2.3 | 1 | + + + +---------+ | 2023-09-06 00:00 | heart_rate | 72 | /min | + + + +---------+ | 2023-09-06 00:00 | height_metric | 165.1 | cm | + + + +---------+ | 2023-09-06 00:00 | height_standard | 65 | in | + + + +---------+ | 2023-09-06 00:00 | o2_saturation | 98 | % | + + + +---------+ | 2023-09-06 00:00 | respiration_rate | 18 | /min | + + + +---------+ | 2023-09-06 00:00 | temperature_metric | 36.89 | C | | | | | | + + + +---------+ | 2023-09-06 00:00 | | 98.4 | F | | | temperature_standar | | | | | d | | | + + + +---------+ | 2023-09-06 00:00 | weight_metric | 127.73 | kg | + + + +---------+ | 2023-09-06 00:00 | weight_standard | 281.6 | lb | + + + +---------+"
--- OUTSIDE RECORDS SUMMARY | 2023-09-10 17:10 | XMS ---
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 No recent Security Events currently on file CRITERIA MET - 6 ED Visits in 6 Months - PDMP - [facility] - 2 Visits in 30 Days - [facility] - 3 Facilities in 90 Days CARE PROVIDERS -, Alfredo Padilla- Dentist: Web Content Writer [facility] PHONE: [phone] [facility]: [facility] PHONE: [phone] DIANNE VALENCIA Internal Medicine Current PHONE: Unknown DENISA BOWLING [facility] Current PHONE: Unknown IMANI DEWEY Internal Medicine Current PHONE: Unknown Magui has no Care Guidelines for this patient. Sherry VISIT COUNT (12 MO.) 11 Alfonso Zimmerman ([facility]) [address] [facility] [place] [facility] 1 [facility] [address] [facility] [address] [facility] TOTAL 18 NOTE: Visits indicate total known visits. ED/UCC VISIT TRACKING (12 MO.) 09/10/2023 17:09 ERIKA Valentino TYPE: Emergency COMPLAINT: - LT SHOULDER PAIN 08/22/2023 22:34 [facility] TYPE: Emergency DIAGNOSES: - Other low back pain - Back Pain - Incontinence 08/22/2023 18:19 ERIKA Valentino TYPE: Emergency COMPLAINT: - BACK PAIN DIAGNOSES: - Abnormal reflex - Allergy status to analgesic agent - Allergy status to narcotic agent - Allergy status to other drugs, medicaments and biological substances - Allergy status to serum and vaccine - Dorsalgia, unspecified - Full incontinence of feces - halfway (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 - Other halfway (current) drug therapy - Other symptoms and signs involving the musculoskeletal system - Radiographic dye allergy status - Systemic lupus erythematosus, unspecified - Type 2 diabetes mellitus without complications - Unspecified urinary incontinence 07/26/2023 11:31 Alfonso [facility]ILA [place] ([facility]) TYPE: Emergency DIAGNOSES: - Zoster without complications - dizzy - Followup Medical Problem 07/18/2023 14:20 ERIKA Jacques [place] TYPE: Emergency COMPLAINT: - ABD/BACK PAIN, LEGS SWOLLEN DIAGNOSES: - Allergy status to narcotic agent - Allergy status to other drugs, medicaments and biological substances - Allergy status to serum and vaccine - Constipation, unspecified - Localized edema - halfway (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 - Lower abdominal pain, unspecified - Other halfway (current) drug therapy - Radiographic dye allergy status - Systemic lupus erythematosus, unspecified - Type 2 diabetes mellitus without complications 07/18/2023 09:32 Alfonso [facility]ILA [place] ([facility]) TYPE: Emergency DIAGNOSES: - Constipation, unspecified - Abdominal Pain - Followup Medical Problem - Kidney Pain 04/17/2023 15:18 [facility] [place] TYPE: Emergency COMPLAINT: - Pre-arrival: Boarder/Cellulitis DIAGNOSES: - Cutaneous abscess, unspecified - Abscess - Cellulitis / abscess 04/17/2023 03:26 Alfonso AVILA [place] ([facility]) TYPE: Emergency DIAGNOSES: - Cellulitis, unspecified - Osteomyelitis of vertebra, site unspecified - Abscess (Complicated) - Bug bite 04/05/2023 14:00 [facility] ID TYPE: Emergency DIAGNOSES: - Epigastric pain - Chest Pain 02/25/2023 16:[address] [facility] TYPE: Emergency COMPLAINT: - CHEST PAIN DIAGNOSES: - Allergy status to narcotic agent - Allergy status to other drugs, medicaments and biological substances - Allergy status to serum and vaccine - Chest pain, unspecified - Essential (primary) hypertension - watermaster (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 - Obesity, unspecified - Other termite inspector (current) drug therapy - Type 2 diabetes mellitus without complications 02/21/2023 00:53 Alfonso [facility] [place] ([facility]) TYPE: Emergency DIAGNOSES: - Contusion of right lower leg, subsequent encounter - Contusion of right upper arm, initial encounter - fall 01/17/2023 19:01 Alfonso [facility] [place] ([facility]) TYPE: Emergency DIAGNOSES: - Chest pain, unspecified - Nausea - Unspecified abdominal pain - Chest Pain 01/05/2023 16:16 Alfonso [facility]A [facility] ([facility]) TYPE: Emergency DIAGNOSES: - Contusion of right knee, initial encounter - Fall on same level, unspecified, initial encounter - Sprain of other ligament of left ankle, initial encounter - Fall - Knee Injury 12/04/2022 09:17 Alfonso [facility] ([facility]) TYPE: Emergency DIAGNOSES: - Sprain of unspecified site of right knee, initial encounter - Knee Pain - Weakness 10/24/2022 18:51 Alfonso Mehrdad AVIAL [place] ([facility]) TYPE: Emergency DIAGNOSES: - Sprain of unspecified parts of thorax, initial encounter - Back Pain - Follow up Medical - Followup Medical Problem 10/23/2022 12:55 Alfonso [facility] ([facility]) TYPE: Emergency DIAGNOSES: - Contusion of left front wall of thorax, initial encounter - Strain of muscle, fascia and tendon at neck level, initial encounter - Unspecified sprain of left elbow, initial encounter - Unspecified sprain of left shoulder joint, initial encounter - Arm Injury - Left Side Pain 09/26/2022 23:02 Alfonso [facility]A [place] ([facility]) TYPE: Emergency DIAGNOSES: - Chest pain, unspecified - Weakness - Chest Pain - Chest Pain / Right Sided Weakness 09/15/2022 15:58 Alfonso CAPELLAN ([facility]) TYPE: Emergency DIAGNOSES: - Unspecified convulsions - Weakness - Facial Droop - Headache (Adult - New Onset Or New Symptoms) - Seizure (Adult - Prior Hx Of) - Stroke Like Symptoms INPATIENT VISIT TRACKING (12 MO.) 08/22/2023 22:[address] [facility] TYPE: Internal Medicine DIAGNOSES: - Anesthesia of skin - Encounter for screening, unspecified - Fall on same level, unspecified, initial encounter - Low back pain, unspecified - Obstructive sleep apnea (adult) (pediatric) - Other low back pain - Other symptoms and signs involving the musculoskeletal system - Other symptoms and signs involving the nervous system - Personal history of transient ischemic attack (TIA), and cerebral infarction without residual deficits - Spinal stenosis, cervical region - Strain of muscle and tendon of unspecified wall of thorax, subsequent encounter - Type 2 diabetes mellitus with diabetic polyneuropathy 04/17/2023 15:18 [facility] TYPE: General Medicine COMPLAINT: - Pre-arrival: Boarder/Cellulitis DIAGNOSES: - Cutaneous abscess, unspecified 09/15/2022 15:58 Alfonso Mehrdad CAPELLAN ([facility]) TYPE: Internal Medicine DIAGNOSES: - Acute cystitis without hematuria - Hemiplegic migraine, not intractable, without status migrainosus - Personal history of other diseases of the nervous system and sense organs - Unspecified convulsions - Weakness [email or web address]
[2023-09-10] MEDS ORDERED: HYDROCODON-ACE1 EA10 PO (18:41)
[2023-09-10] MEDS ORDERED: HYDROCODONE BIT/ACETAMINOPHEN 5/325 MG 1 TAB HOME.PACK PO ONE (18:45)
== END 2023-09-10 19:12 | disposition home or self-care (01) ==
LOC: ED 17:08
DX: S43.402A Unspecified sprain of left shoulder joint, initial encounter (principal); W10.9XXA Fall (on) (from) unspecified stairs and steps, initial encounter; E11.9 Type 2 diabetes mellitus without complications; Z88.5 Allergy status to narcotic agent; Z88.7 Allergy status to serum and vaccine; Z88.8 Allergy status to other drugs, medicaments and biological substances; Z88.6 Allergy status to analgesic agent; Z91.041 Radiographic dye allergy status; Z79.899 Other long term (current) drug therapy; Z79.4 Long term (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
CPT/HCPCS: 73030; A9270

== ENCOUNTER 2023-12-23 14:55 | Emergency (ER) | payer MEDICARE, OTHER ==
[~2023-12-23] VITALS: Ht 165.1 cm; Wt 127.0 kg
--- OUTSIDE RECORDS SUMMARY | ~2023-12-23 | XMS | Continuity of Care Document ---
Demographics + + + | Address | [address] | | | [place] [address] | + + + | Preferred Language | Unknown | + + + | Marital Status | | + + + | Worship Affiliation | Unknown | + + + | Race | White | + + + | Ethnic Group | Not or | + + + Author + + + | Author | [facility] | + + + | Organization | [facility] | + + + | Address | [address] | | | [place] [address] | + + + | Phone | | + + + Care Team Providers + + + + | Care Lead Cook Name | Role | Phone | + + + + Unavailable | Unavailable | + + + + Unavailable | Unavailable | + + + + Allergies No information. Encounters No information. Functional Status No information. Immunizations No information. Medications + + + + | date | description | facility | + + + + | 2023-09-25 00:00 | doxycycline hyclate 100 MG | [facility] | | | Oral Tablet | | + + + + | 2023-09-25 00:00 | Promethazine HCl 12.5 MG | [facility] | | | Oral Tablet | | + + + + | 2023-10-06 00:00 | pregabalin 100 MG Oral | [facility] | | | Capsule | | + + + + | 2023-09-25 00:00 | Doxycycline Hyclate 100 MG | [facility] | | | Oral Tablet | | + + + + | 2023-11-02 00:00 | HYDROcodone-Acetaminophen | [facility] | | | 5-325 MG Oral Tablet | | + + + + | 2023-11-02 00:00 | acetaminophen 325 MG / | [facility] | | | hydrocodone bitartrate 5 MG | | | | Oral Tablet | | + + + + | 2023-10-06 00:00 | [facility]alin 100 MG Oral | [facility] | | | Capsule | | + + + + | 2023-09-25 00:00 | promethazine hydrochloride | [facility] | | | 12.5 MG Oral Tablet | | + + + + Problems No information. Procedures + + + + | date | description | facility | + + + + | 2023-11-02 00:00 | Tobacco use assessed | [facility] | | | | | + + + + | 2023-11-02 00:00 | HbA1c Level 8.0% to less | [facility] | | | than or equal to 9.0% | | + + + + | 2023-11-02 00:00 | Controlling BP; Most | [facility] | | | recent Systolic BP | | | | 130-139mm Hg | | + + + + | 2023-11-02 00:00 | Controlling BP; Most | [facility] | | | recent Diastolic BP btwn | | | | 80-89 mm Hg | | + + + + Results/Labs No information. Social History + + + + | date | description | facility | + + + + | 2023-09-25 00:00 | Unknown if ever smoked | [facility] | | | | | + + + + | 2023-11-03 00:00 | Unknown if ever smoked [facility] | | | | | + + + + Vital Signs + + + +---------+ | date | measurement | value | units | + + + +---------+ | 2023-09-25 00:00 | BMI | 46.8 | 1 | + + + +---------+ | 2023-09-25 00:00 | BP_diastolic | 88 | mmHg | + + + +---------+ | 2023-09-25 00:00 | BP_systolic | 140 | mmHg | + + + +---------+ | 2023-09-25 00:00 | BSA | 2.3 | 1 | + + + +---------+ | 2023-09-25 00:00 | heart_rate | 93 | /min | + + + +---------+ | 2023-09-25 00:00 | height_metric | 165.1 | cm | + + + +---------+ | 2023-09-25 00:00 | height_standard | 65 | in | + + + +---------+ | 2023-09-25 00:00 | o2_saturation | 95 | % | + + + +---------+ | 2023-09-25 00:00 | temperature_metric | 36.06 | C | | | | | | + + + +---------+ | 2023-09-25 00:00 | | 96.9 | F | | | temperature_standar | | | | | d | | | + + + +---------+ | 2023-09-25 00:00 | weight_metric | 127.46 | kg | + + + +---------+ | 2023-09-25 00:00 | weight_standard | 281 | lb | + + + +---------+ | 2023-11-02 00:00 | BMI | 49.2 | 1 | + + + +---------+ | 2023-11-02 00:00 | BP_diastolic | 84 | mmHg | + + + +---------+ | 2023-11-02 00:00 | BP_systolic | 132 | mmHg | + + + +---------+ | 2023-11-02 00:00 | BSA | 2.3 | 1 | + + + +---------+ | 2023-11-02 00:00 | heart_rate | 77 | /min | + + + +---------+ | 2023-11-02 00:00 | height_metric | 165.1 | cm | + + + +---------+ | 2023-11-02 00:00 | height_standard | 65 | in | + + + +---------+ | 2023-11-02 00:00 | o2_saturation | 96 | % | + + + +---------+ | 2023-11-02 00:00 | respiration_rate | 18 | /min | + + + +---------+ | 2023-11-02 00:00 | temperature_metric | 36.83 | C | | | | | | + + + +---------+ | 2023-11-02 00:00 | | 98.3 | F | | | temperature_standar | | | | | d | | | + + + +---------+ | 2023-11-02 00:00 | weight_metric | 134.08 | kg | + + + +---------+ | 2023-11-02 00:00 | weight_standard | 295.6 | lb | + + + +---------+"
[~2023-12-23 14:55] MED LIST changes: +HYDROCODON-ACE1 EA10 PO
[2023-12-23] MEDS ORDERED: HYDROmorphone HCL 1 MG/ML SYR IV PRN (16:00)
[2023-12-23] MEDS ORDERED: DEXAMETHASONE SOD PHOS 10 MG/ML VIAL IV ONE (16:00)
--- OUTSIDE RECORDS SUMMARY | 2023-12-23 16:01 | XMS ---
PreManage Notification: PAPO GODFREY Security [employer] Events No recent Security Events currently on file CRITERIA MET - 6 ED Visits in 6 Months - PDMP - [facility] - 2 Visits in 30 Days - [facility] - 3 Facilities in 90 Days CARE PROVIDERS -, [facility] Dentist: Head Worker [facility] PHONE: [phone] - [place]- Dentist: Head Worker [facility] PHONE: [phone] MARY CASTILLO [facility]: [facility] PHONE: [phone] DIANNE VALENCIA Internal Medicine Current PHONE: Unknown DENISA BOWLING [facility] Current PHONE: Unknown IMANI DEWEY Internal Medicine Current PHONE: Unknown Mag[facility] has no Care Guidelines for this patient. Sherry VISIT COUNT (12 MO.) 10 Mary Zimmerman ([facility]) 7 [facility] [address] [facility] [address] [facility] [address] [facility] [place] TOTAL 21 NOTE: Visits indicate total known visits. ED/UCC VISIT TRACKING (12 MO.) 12/23/2023 14:56 ERIKA Jacques [place] TYPE: Emergency COMPLAINT: - SOB, UPPER ABD PAIN 12/22/2023 10:35 Mary [facility]A [place] ([employer] [facility]) TYPE: Emergency DIAGNOSES: - Strain of muscle, fascia and tendon of lower back, initial encounter - Back Pain 12/16/2023 16:36 Mary [facility] [place] ([facility]) TYPE: Emergency DIAGNOSES: - Constipation, unspecified - terminologist (current) use of opiate analgesic - Nausea with vomiting, unspecified - Unspecified abdominal pain - Abdominal Pain - hard to breathe, body aches, vomitting, diabetic issues 12/09/2023 00:01 Mary Mehrdad DeoDania [facility] [place] ([facility]) TYPE: Emergency DIAGNOSES: - Cellulitis of right lower limb - terminologist (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 - Pain in thoracic spine - Type 2 diabetes mellitus with hyperglycemia - Back Pain - Flank Pain 11/12/2023 01:32 [facility] TYPE: Emergency DIAGNOSES: - Chronic pain syndrome - Fall on same level, unspecified, initial encounter - Low back pain, unspecified - Other chronic pain - Unsteadiness on feet - Back Pain - Loss of bowel tone and bladder, pain 11/11/2023 17:53 ERIKA Jacques [place] TYPE: Emergency COMPLAINT: - FALL, L KNEE/HIP INJURY DIAGNOSES: - Allergy status to narcotic agent - Allergy status to other drugs, medicaments and biological substances - Allergy status to serum and vaccine - Contusion of left hip, initial encounter - Fall on same level from slipping, tripping and stumbling without subsequent striking against object, initial encounter - intermediate (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 - Other terminologist (current) drug therapy - Pain in left knee - Radiographic dye allergy status - Sprain of unspecified site of left knee, initial encounter - Type 2 diabetes mellitus without complications 09/27/2023 19:42 Mary [facility]ILA [place] ([facility]) TYPE: Emergency DIAGNOSES: - Cellulitis of right lower limb - Back Pain 09/13/2023 18:06 ERIKA Valentino TYPE: Emergency COMPLAINT: - LT HAND NUMBNESS DIAGNOSES: - Allergy status to analgesic agent - Allergy status to narcotic agent - Allergy status to other drugs, medicaments and biological substances - Allergy status to serum and vaccine - Cervicalgia - Fall (on) (from) unspecified stairs and steps, initial encounter - terminologist (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 - Other mcc (current) drug therapy - Overexertion from prolonged static or awkward postures, initial encounter - Pain in left shoulder - Radiographic dye allergy status - Strain of unspecified muscle, fascia and tendon at shoulder and upper arm level, left arm, initial encounter - Systemic lupus erythematosus, unspecified - Type 2 diabetes mellitus without complications 09/10/2023 17:09 ERIKA Jacques [place] TYPE: Emergency COMPLAINT: - LT SHOULDER PAIN DIAGNOSES: - Allergy status to analgesic agent - Allergy status to narcotic agent - Allergy status to other drugs, medicaments and biological substances - Allergy status to serum and vaccine - Fall (on) (from) unspecified stairs and steps, initial encounter - intermediate (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 - Other terminologist (current) drug therapy - Pain in left shoulder - Radiographic dye allergy status - Type 2 diabetes mellitus without complications - Unspecified sprain of left shoulder joint, initial encounter 08/22/2023 22:34 [facility] TYPE: Emergency DIAGNOSES: - Other low back pain - Back Pain - Incontinence 08/22/2023 18:19 ERIKA Jacques [place] TYPE: Emergency COMPLAINT: - BACK PAIN DIAGNOSES: - Abnormal reflex - Allergy status to analgesic agent - Allergy status to narcotic agent - Allergy status to other drugs, medicaments and biological substances - Allergy status to serum and vaccine - Dorsalgia, unspecified - Full incontinence of feces - intermediate (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 - Other mcc (current) drug therapy - Other symptoms and signs involving the musculoskeletal system - Radiographic dye allergy status - Systemic lupus erythematosus, unspecified - Type 2 diabetes mellitus without complications - Unspecified urinary incontinence 07/26/2023 11:31 Mary [facility]A [place] ([employer] [facility]) TYPE: Emergency DIAGNOSES: - Zoster without complications - dizzy - Followup Medical Problem 07/18/2023 14:20 ERIKA Jacques [place] TYPE: Emergency COMPLAINT: - ABD/BACK PAIN, LEGS SWOLLEN DIAGNOSES: - Allergy status to narcotic agent - Allergy status to other drugs, medicaments and biological substances - Allergy status to serum and vaccine - Constipation, unspecified - Localized edema - intermediate (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 - Lower abdominal pain, unspecified - Other mcc (current) drug therapy - Radiographic dye allergy status - Systemic lupus erythematosus, unspecified - Type 2 diabetes mellitus without complications 07/18/2023 09:32 Mary [facility] [place] ([facility] [facility]) TYPE: Emergency DIAGNOSES: - Constipation, unspecified - Abdominal Pain - Followup Medical Problem - Kidney Pain 04/17/2023 15:18 [facility] [place] TYPE: Emergency COMPLAINT: - Pre-arrival: Boarder/Cellulitis DIAGNOSES: - Cutaneous abscess, unspecified - Abscess - Cellulitis / abscess 04/17/2023 03:26 Mary [facility]A [place] ([facility]) TYPE: Emergency DIAGNOSES: - Cellulitis, unspecified - Osteomyelitis of vertebra, site unspecified - Abscess (Complicated) - Bug bite 04/05/2023 14:00 [facility] ID TYPE: Emergency DIAGNOSES: - Epigastric pain - Chest Pain 02/25/2023 16:33 ERIKA Valentino TYPE: Emergency COMPLAINT: - CHEST PAIN DIAGNOSES: - Allergy status to narcotic agent - Allergy status to other drugs, medicaments and biological substances - Allergy status to serum and vaccine - Chest pain, unspecified - Essential (primary) hypertension - terminologist (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 - Obesity, unspecified - Other terminologist (current) drug therapy - Type 2 diabetes mellitus without complications 02/21/2023 00:53 Mary [facility] [place] ([employer] [facility]) TYPE: Emergency DIAGNOSES: - Contusion of right lower leg, subsequent encounter - Contusion of right upper arm, initial encounter - fall 01/17/2023 19:01 Mary [facility] [place] ([employer] [facility]) TYPE: Emergency DIAGNOSES: - Chest pain, unspecified - Nausea - Unspecified abdominal pain - Chest Pain Plus 1 More Visit INPATIENT VISIT TRACKING (12 MO.) 12/09/2023 00:01 Mary [facility] [place] ([employer] [facility]) TYPE: General Medicine DIAGNOSES: - Arthrodesis status - Cellulitis of right lower limb - Cervicalgia - intermediate (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 - Lumbago with sciatica, left side - Osteomyelitis of vertebra, site unspecified - Other cervical disc degeneration, unspecified cervical region - Other chronic pain - Pain in thoracic spine - Patent foramen ovale - Type 2 diabetes mellitus with hyperglycemia 11/22/2023 14:56 [facility] [place] ([employer] ) TYPE: General Medicine DIAGNOSES: - Lumbago with sciatica, left side - Pain, unspecified - Weakness [facility]23 01:[facility] DIAGNOSES: - Chronic pain syndrome - Fall on same level, unspecified, initial encounter - Low back pain, unspecified - Lumbago with sciatica, left side - Other chronic pain - Spinal stenosis, lumbar region without neurogenic claudication - Unsteadiness on feet 09/27/2023 19:42 Mary DesouzaDania MCKEONE MINERVA ([facility]) TYPE: Internal Medicine DIAGNOSES: - Cellulitis of right lower limb 08/22/2023 22:34 [facility] TYPE: Internal Medicine DIAGNOSES: - Anesthesia of [...] with diabetic polyneuropathy 04/17/2023 15:18 [facility] TYPE: General Medicine COMPLAINT: - Pre-arrival: Boarder/Cellulitis DIAGNOSES: - Cutaneous abscess, unspecified [email or web address]
[2023-12-23] MEDS ORDERED: PROCHLORPERAZINE EDISYLATE 10 MG/2 ML VIAL IV ONE (17:15)
[2023-12-23 20:21] VITALS: BP 165/89
== END 2023-12-23 20:21 | disposition short-term general hospital (02) ==
LOC: ED 14:55
DX: G83.4 Cauda equina syndrome (principal); E11.9 Type 2 diabetes mellitus without complications; Z91.040 Latex allergy status; Z88.8 Allergy status to other drugs, medicaments and biological substances; Z88.5 Allergy status to narcotic agent; Z88.7 Allergy status to serum and vaccine; Z79.4 Long term (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; Z79.899 Other long term (current) drug therapy
CPT/HCPCS: 96374; 96375; 96376; 99284-25; J0780; J1100; J1170

== ENCOUNTER 2024-05-22 09:29 | Emergency (ER) | payer MEDICARE, OTHER ==
[~2024-05-22] VITALS: Ht 165.1 cm; Wt 134.0 kg
--- OUTSIDE RECORDS SUMMARY | ~2024-05-22 | XMS | Continuity of Care Document ---
Demographics + + + | Address | [address] | | | [place] [address] | + + + | Preferred Language | Unknown | + + + | Marital Status | | + + + | Rastafarian Affiliation | Unknown | + + + | Race | Unknown | + + + | Ethnic Group | Unknown | + + + Author + + + | Author | [place] | + + + | Organization | [place] | + + + | Address | [address] [facility] [address] | | | [place] [address] | + + + | Phone | | + + + Care Team Providers + + + + | Care Solution Make Up Operator Name | Role | Phone | + + + + Unavailable | Unavailable | + + + + Unavailable | Unavailable | + + + + Allergies No information. Encounters No information. Functional Status No information. Immunizations No information. Medications + + + + | date | description | facility | + + + + | 2024-03-16 00:00 | oxycodone hydrochloride 5 | [facility] | | | MG Oral Tablet | | + + + + | 2024-02-22 00:00 | oxycodone hydrochloride 10 | [facility] | | | MG Oral Tablet | | + + + + | 2024-04-15 00:00 | oxycodone hydrochloride 10 | [facility] | | | MG Oral Tablet | | + + + + | 2024-05-04 00:00 | oxycodone hydrochloride 10 | [facility] | | | MG Oral Tablet | | + + + + | 2024-02-29 00:00 | Promethazine HCl 12.5 MG | [facility] | | | Oral Tablet | | + + + + | 2024-03-01 00:00 | fluconazole 150 MG Oral | [facility] | | | Tablet | | + + + + | 2024-04-18 00:00 | fluconazole 150 MG Oral | [facility] | | | Tablet | | + + + + | 2024-02-22 00:00 | HumaLOG 100 UNIT/ML | [facility] | | | Injection Solution | | + + + + | 2024-02-22 00:00 | oxyCODONE HCl 10 MG Oral | [facility] | | | Tablet | | + + + + | 2024-04-15 00:00 | oxyCODONE HCl 10 MG Oral | [facility] | | | Tablet | | + + + + | 2024-05-04 00:00 | oxyCODONE HCl 10 MG Oral | [facility] | | | Tablet | | + + + + | 2024-03-16 00:00 | oxyCODONE HCl 5 MG Oral | [facility] | | | Tablet | | + + + + | 2024-02-22 00:00 | tizanidine 4 MG Oral | [facility] | | | Tablet | | + + + + | 2024-05-04 00:00 | tizanidine 4 MG Oral | [facility] | | | Tablet | | + + + + | 2024-03-01 00:00 | escitalopram 10 MG Oral | [facility] | | | Tablet | | + + + + | 2024-03-16 00:00 | escitalopram 20 MG Oral | [facility] | | | Tablet | | + + + + | 2024-05-04 00:00 | buprenorphine 2 MG | [facility] | | | Sublingual Tablet | | + + + + | 2024-03-01 00:00 | Fluconazole 150 MG Oral | [facility] | | | Tablet | | + + + + | 2024-04-18 00:00 | Fluconazole 150 MG Oral | [facility] | | | Tablet | | + + + + | 2024-02-22 00:00 | tiZANidine HCl 4 MG Oral | [facility] | | | Tablet | | + + + + | 2024-05-04 00:00 | tiZANidine HCl 4 MG Oral | [facility] | | | Tablet | | + + + + | 2024-02-22 00:00 | Insulin Syringe 29G X 1/2" | [facility] | | | 1 ML Miscellaneous | | + + + + | 2024-03-01 00:00 | Escitalopram Oxalate 10 MG | [facility] | | | Oral Tablet | | + + + + | 2024-03-16 00:00 | Escitalopram Oxalate 20 MG | [facility] | | | Oral Tablet | | + + + + | 2024-05-04 00:00 | Buprenorphine HCl 2 MG | [facility] | | | Sublingual Tablet | | | | Sublingual | | + + + + | 2024-02-22 00:00 | insulin lispro 100 UNT/ML | [facility] | | | Injectable Solution | | | | [Humalog] | | + + + + | 2024-02-29 00:00 | promethazine hydrochloride | [facility] | | | 12.5 MG Oral Tablet | | + + + + Problems + + + + | date | description | facility | + + + + | 2024-05-04 00:00 | PARAPLEGIA | [facility] | + + + + | 2024-05-04 00:00 | 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) | | + + + + | 2024-05-04 00:00 | history of (contextual | [facility] | | | qualifier) (qualifier | | | | value) | | + + + + | 2024-05-04 00:00 | Paraplegia (disorder) | [facility] | + + + + | 2024-05-04 00:00 | Paraplegia of Unknown | [facility] | | | Etiology | | + + + + | 2024-05-04 00:00 | PERSONAL HISTORY STOMACH | [facility] | | | MALIGNANT NEOPLASM | | + + + + | 2024-05-04 00:00 | HEART VALVE REPLACEMENT | [facility] | + + + + | 2024-05-04 00:00 | History of Gastric | [facility] | | | Neoplasm Malignant | | + + + + | 2024-05-04 00:00 | Organ Or Tissue Replaced, | [facility] | | | Blood Vessel | | + + + + Procedures + + + + | date | description | facility | + + + + | 2024-03-16 00:00 | Tobacco use assessed | [facility] | + + + + | 2024-03-16 00:00 | Controlling BP; Most | [facility] | | | recent Systolic BP | | | | 130-139mm Hg | | + + + + | 2024-03-16 00:00 | Controlling BP; Most | [facility] | | | recent Diastolic BP btwn | | | | 80-89 mm Hg | | + + + + | 2024-03-16 00:00 | Negative Screen for | [facility] | | | Depression Symptoms (MDD) | | + + + + | 2024-05-04 00:00 | Negative Screen for | [facility] | | | Depression Symptoms (MDD) | | + + + + | 2024-05-18 00:00 | Negative Screen for | [facility] | | | Depression Symptoms (MDD) | | + + + + Results/Labs No information. Social History + + + + | date | description | facility | + + + + | 2024-02-24 00:00 | Unknown if ever smoked | [facility] | + + + + | 2024-02-29 00:00 | Unknown if ever smoked | [facility] | + + + + | 2024-03-02 00:00 | Unknown if ever smoked | [facility] | + + + + | 2024-03-06 00:00 | Unknown if ever smoked | [facility] | + + + + | 2024-03-06 00:00 | Smoker (finding) | [facility] | + + + + | 2024-03-16 00:00 | Never smoked tobacco | [facility] | | | (finding) | | + + + + | 2024-03-16 00:00 | Unknown if ever smoked | [facility] | + + + + | 2024-05-02 00:00 | Never smoked tobacco | [facility] | | | (finding) | | + + + + | 2024-05-02 00:00 | Unknown if ever smoked | [facility] | + + + + | 2024-05-04 00:00 | Never smoked tobacco | [facility] | | | (finding) | | + + + + | 2024-05-04 00:00 | Unknown if ever smoked | [facility] | + + + + | 2024-05-08 00:00 | Never smoked tobacco | [facility] | | | (finding) | | + + + + | 2024-05-08 00:00 | Unknown if ever smoked | [facility] | + + + + | 2024-05-18 00:00 | Never smoked tobacco | [facility] | | | (finding) | | + + + + | 2024-05-18 00:00 | Unknown if ever smoked | [facility] | + + + + Vital Signs + + + +---------+ | date | measurement | value | units | + + + +---------+ | 2024-02-22 00:00 | height_metric | 165.1 | cm | + + + +---------+ | 2024-02-22 00:00 | height_standard | 65 | in | + + + +---------+ | 2024-03-01 00:00 | height_metric | 165.1 | cm | + + + +---------+ | 2024-03-01 00:00 | height_standard | 65 | in | + + + +---------+ | 2024-03-16 00:00 | BMI | 43.4 | 1 | + + + +---------+ | 2024-03-16 00:00 | BP_diastolic | 86 | mmHg | + + + +---------+ | 2024-03-16 00:00 | BP_systolic | 134 | mmHg | + + + +---------+ | 2024-03-16 00:00 | BSA | 2.2 | 1 | + + + +---------+ | 2024-03-16 00:00 | heart_rate | 85 | /min | + + + +---------+ | 2024-03-16 00:00 | height_metric | 165.1 | cm | + + + +---------+ | 2024-03-16 00:00 | height_standard | 65 | in | + + + +---------+ | 2024-03-16 00:00 | o2_saturation | 96 | % | + + + +---------+ | 2024-03-16 00:00 | respiration_rate | 20 | /min | + + + +---------+ | 2024-03-16 00:00 | temperature_metric | 36.94 | C | | | | | | + + + +---------+ | 2024-03-16 00:00 | | 98.5 | F | | | temperature_standar | | | | | d | | | + + + +---------+ | 2024-03-16 00:00 | weight_metric | 118.39 | kg | + + + +---------+ | 2024-03-16 00:00 | weight_standard | 261 | lb | + + + +---------+ | 2024-05-04 00:00 | BP_diastolic | 84 | mmHg | + + + +---------+ | 2024-05-04 00:00 | BP_systolic | 128 | mmHg | + + + +---------+ | 2024-05-04 00:00 | heart_rate | 97 | /min | + + + +---------+ | 2024-05-04 00:00 | height_metric | 165.1 | cm | + + + +---------+ | 2024-05-04 00:00 | height_standard | 65 | in | + + + +---------+ | 2024-05-04 00:00 | o2_saturation | 98 | % | + + + +---------+ | 2024-05-04 00:00 | respiration_rate | 18 | /min | + + + +---------+ | 2024-05-04 00:00 | temperature_metric | 36.67 | C | | | | | | + + + +---------+ | 2024-05-04 00:00 | | 98 | F | | | temperature_standar | | | | | d | | | + + + +---------+ | 2024-05-18 00:00 | height_metric | 165.1 | cm | + + + +---------+ | 2024-05-18 00:00 | height_standard | 65 | in | + + + +---------+
[~2024-05-22 09:29] MED LIST changes: +DAPTOMYCIN500 MG IV; +OXYCODONE HCL10 MG PO
--- OUTSIDE RECORDS SUMMARY | 2024-05-22 09:33 | XMS ---
PreManage Notification: PAPO GODFREY Security Lead Consultant Events No recent Security Events currently on file CRITERIA MET - 6 ED Visits in 6 Months - [facility] - 3 Facilities in 90 Days CARE PROVIDERS -, [facility] Dentist: Solid Waste Collector [facility] PHONE: [phone] - [place]- Dentist: Solid Waste [facility] PHONE: [phone] MARY CASTILLO [facility]: [facility] PHONE: [phone] DIANNE VALENCIA Internal Medicine Current PHONE: Unknown [facility] [place] [facility] PHONE: Unknown IMANI DEWEY Internal Medicine Current PHONE: Unknown MD GENNA Nurse Practitioner: Gerontology Current PHONE: Unknown Mag[facility] has no Care Guidelines for this patient. Sherry VISIT COUNT (12 MO.) 8 ERIKA Melton 7 Mary Zimmerman ([facility]) 4 [facility] [address] [facility] TOTAL 20 NOTE: Visits indicate total known visits. ED/UCC VISIT TRACKING (12 MO.) 05/22/2024 09:30 ERIKA Valentino TYPE: Emergency COMPLAINT: - LT LEG SWELLING 04/08/2024 08:20 [facility] TYPE: Emergency COMPLAINT: - EMS: Stroke DIAGNOSES: - Hemiplegic migraine, not intractable, without status migrainosus - Cerebrovascular Accident - stroke like symptoms 03/24/2024 17:46 Mary DesouzaDania [place] ([facility] TYPE: Emergency DIAGNOSES: - Low back pain, unspecified - Other chronic pain - Paraplegia, complete - Back Pain - Fall 01/23/2024 06:54 ERIKA Valentino TYPE: Emergency COMPLAINT: - BACK PAIN DIAGNOSES: - Allergy status to analgesic agent - Allergy status to narcotic agent - Allergy status to other drugs, medicaments and biological substances - Allergy status to serum and vaccine - Infection following a procedure, other surgical site, initial encounter - termite helper (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 - Low back pain, unspecified - Other termite helper (current) drug therapy - Other surgical procedures as the cause of abnormal reaction of the patient, or of later complication, without mention of misadventure at the time of the procedure - Radiographic dye allergy status - Type 2 diabetes mellitus without complications 01/11/2024 22:56 [facility] DIAGNOSES: - Dorsalgia, unspecified - Other complications of procedures, not elsewhere classified, initial encounter - Vomiting, unspecified - Post-op Problem 12/23/2023 21:43 [facility] TYPE: Emergency DIAGNOSES: - Fall on same level, unspecified, initial encounter - retirement (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 - Low back pain, unspecified - Other low back pain - Other symptoms and signs involving the musculoskeletal system - Rash and other nonspecific skin eruption - Type 2 diabetes mellitus without complications - Back Pain - Loss of rectal tone 12/23/2023 14:56 ERIKA Valentino TYPE: Emergency COMPLAINT: - SOB, UPPER ABD PAIN DIAGNOSES: - Allergy status to narcotic agent - Allergy status to other drugs, medicaments and biological substances - Allergy status to serum and vaccine - Cauda equina syndrome - Latex allergy status - retirement (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 - Low back pain, unspecified - Other termite helper (current) drug therapy - Type 2 diabetes mellitus without complications 12/22/2023 10:35 [place] [facility] TYPE: Emergency DIAGNOSES: - Strain of muscle, fascia and tendon of lower back, initial encounter - Back Pain 12/16/2023 16:36 Mary Andrewsmercedes DeoDania [place] ([facility] TYPE: Emergency DIAGNOSES: - Constipation, unspecified - termite helper (current) use of opiate analgesic - Nausea with vomiting, unspecified - Unspecified abdominal pain - Abdominal Pain - hard to breathe, body aches, vomitting, diabetic issues 12/09/2023 00:01 Mary Mehrdad [place] [facility] TYPE: Emergency DIAGNOSES: - Cellulitis of right lower limb - termite helper (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 - Pain in thoracic spine - Type 2 diabetes mellitus with hyperglycemia - Back Pain - Flank Pain 11/12/2023 01:32 [facility] TYPE: Emergency DIAGNOSES: - Chronic pain syndrome - Fall on same level, unspecified, initial encounter - Low back pain, unspecified - Other chronic pain - Unsteadiness on feet - Back Pain - Loss of bowel tone and bladder, pain 11/11/2023 17:53 ERIKA Valentino TYPE: Emergency COMPLAINT: - FALL, L KNEE/HIP INJURY DIAGNOSES: - Allergy status to narcotic agent - Allergy status to other drugs, medicaments and biological substances - Allergy status to serum and vaccine - Contusion of left hip, initial encounter - Fall on same level from slipping, tripping and stumbling without subsequent striking against object, initial encounter - termite helper (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 - Other termite helper (current) drug therapy - Pain in left knee - Radiographic dye allergy status - Sprain of unspecified site of left knee, initial encounter - Type 2 diabetes mellitus without complications 09/27/2023 19:42 Mary [place] [facility] TYPE: Emergency DIAGNOSES: - Cellulitis of right lower limb - Back Pain 09/13/2023 18:06 [place] TYPE: Emergency COMPLAINT: - LT HAND NUMBNESS DIAGNOSES: - Allergy status to analgesic agent - Allergy status to narcotic agent - Allergy status to other drugs, medicaments and biological substances - Allergy status to serum and vaccine - Cervicalgia - Fall (on) (from) unspecified stairs and steps, initial encounter - termite helper (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 - Other termite helper (current) drug therapy - Overexertion from prolonged [...] unspecified stairs and steps, initial encounter - termite helper (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 - Other termite helper (current) drug therapy - Pain in left shoulder - Radiographic dye allergy status - Type 2 diabetes mellitus without complications - Unspecified sprain of left shoulder joint, initial encounter 08/22/2023 22:34 [facility] TYPE: Emergency DIAGNOSES: - Other [...] unspecified - Full incontinence of feces - retirement (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 - Other mcfp (current) drug therapy - Other symptoms and signs involving the musculoskeletal system - Radiographic dye allergy status - Systemic lupus erythematosus, unspecified - Type 2 diabetes mellitus without complications - Unspecified urinary incontinence 07/26/2023 11:31 Mary [place] ([facility] TYPE: Emergency DIAGNOSES: - Zoster without complications - dizzy - Followup Medical Problem 07/18/2023 14:20 E[place]KA [place] TYPE: Emergency COMPLAINT: - ABD/BACK PAIN, LEGS SWOLLEN DIAGNOSES: - Allergy status to narcotic agent - Allergy status to other drugs, medicaments and biological substances - Allergy status to serum and vaccine - Constipation, unspecified - Localized edema - termite helper (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 - Lower abdominal pain, unspecified - Other termite helper (current) drug therapy - Radiographic dye allergy status - Systemic lupus erythematosus, unspecified - Type 2 diabetes mellitus without complications 07/18/2023 09:32 [place] ([facility] TYPE: Emergency DIAGNOSES: - Constipation, unspecified - Abdominal Pain - Followup Medical Problem - Kidney Pain INPATIENT VISIT TRACKING (12 MO.) 03/25/2024 03:34 [facility] TYPE: General Medicine COMPLAINT: - Weakness DIAGNOSES: - Weakness - Weakness [facility] DIAGNOSES: - Bacterial infection, unspecified - Bipolar disorder, current episode depressed, moderate - Body mass index [BMI] 40.0-44.9, adult - Erythema intertrigo - Extended spectrum beta lactamase (ESBL) resistance - Hyperlipidemia, unspecified - Infection following a procedure, deep incisional surgical site, subsequent encounter - Infection following a procedure, other surgical site, initial encounter - Low back pain, unspecified - Lumbago with sciatica, left side - Methicillin resistant Staphylococcus aureus infection, unspecified site - Osteomyelitis of vertebra, site unspecified - Other bacterial infections of unspecified site - Other low back pain - Other specified soft tissue disorders - Other symptoms and signs involving the musculoskeletal system - Spinal stenosis, lumbar region without neurogenic claudication - Type 2 diabetes mellitus with unspecified complications - Unspecified infectious disease - Unspecified skin changes - Weakness - Post surgical site abscess 01/11/2024 22:56 [facility] TYPE: Internal Medicine DIAGNOSES: - Dorsalgia, unspecified - Infection and inflammatory reaction due to other internal orthopedic prosthetic devices, implants and grafts, subsequent encounter - Infection following a procedure, other surgical site, initial encounter - Low back pain, unspecified - Other complications of procedures, not elsewhere classified, initial encounter - Personal history of transient ischemic attack (TIA), and cerebral infarction without residual deficits - Vomiting, unspecified 12/23/2023 21:43 [facility] TYPE: Surgery DIAGNOSES: - Bipolar disorder, current episode depressed, moderate - Fall on same level, unspecified, initial encounter - termite helper (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 - Low back pain, unspecified - Other low back pain - Other symptoms and signs involving the musculoskeletal system - Rash and other nonspecific skin eruption - Spinal stenosis, lumbar region without neurogenic claudication - Type 2 diabetes mellitus without complications 12/09/2023 00:01 [facility] [place] ([facility] TYPE: General Medicine DIAGNOSES: - Arthrodesis status - Cellulitis of right lower limb - Cervicalgia - retirement (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 - Lumbago with sciatica, left side - Osteomyelitis of vertebra, site unspecified - Other cervical disc degeneration, unspecified cervical region - Other chronic pain - Pain in thoracic spine - Patent foramen ovale - Type 2 diabetes mellitus with hyperglycemia 11/22/2023 14:56 [facility] [place] ([facility] TYPE: General Medicine DIAGNOSES: - Lumbago with sciatica, left side - Pain, unspecified - Weakness 11/12/2023 01:32 [facility] TYPE: Internal Medicine DIAGNOSES: - Chronic pain syndrome - Fall on same level, unspecified, initial encounter - Low back pain, unspecified - Lumbago with sciatica, left side - Other chronic pain - Spinal stenosis, lumbar region without neurogenic claudication - Unsteadiness on feet 09/27/2023 19:42 [facility] [place] ([facility]) TYPE: Internal Medicine DIAGNOSES: - Cellulitis of right lower limb 08/22/2023 22:34 [facility] DIAGNOSES: - Anesthesia [...] Type 2 diabetes mellitus with diabetic polyneuropathy [email or web address]
[2024-05-22 10:00] LABS: BILIRUBIN, URINE NEGATIVE (negative); BLOOD/HGB, URINE NEGATIVE (Negative); KETONE, URINE NEGATIVE (Negative); LEUK ESTERASE, URINE NEGATIVE (negative); NITRITE, URINE NEGATIVE (negative)
[2024-05-22] MEDS ORDERED: SODIUM CHLORIDE 0.9% 1,000 ML IV ONE (10:00)
[2024-05-22] MEDS ORDERED: HYDROmorphone HCL 1 MG/ML SYR IV PRN (10:00)
[2024-05-22 10:21] LABS: BASOPHILS 0.7 % (0-2); EOSINOPHILS 3.7 % (0-6); HEMATOCRIT 33.3 % (35.0-50.0); HEMOGLOBIN 10.8 g/dL (12.0-18.0); LYMPHOCYTES 31.9 % (24-44); MCH 25.8 (27-36); MCHC 32.5 g/dl (30-36); MCV 79.4 fl (81-99); MONOCYTES 9.2 % (0-12); NEUTROPHILS 54.5 % (39-80); PLATELET COUNT 263 K/uL (140-440); RBC 4.19 M/ul (4.3-5.7)
[2024-05-22 10:42] LABS: ALBUMIN 2.8 g/dL (3.4-5.0); ALBUMIN/GLOBULIN RATIO 0.74 (1.1-2.4); BILIRUBIN, TOTAL 0.2 ng/dL (0.2-1.0); BUN/CREATININE RATIO 14.1 (6.0-28.6); CALCIUM 8.8 mg/dL (8.5-10.1); CREATININE, SERUM 0.78 mg/dL (0.55-1.02); PROTEIN, TOTAL 6.6 g/dL (6.4-8.2)
[2024-05-22] MEDS ORDERED: BUPRENORPHINE HC2 MG SL (12:31)
[2024-05-22] MEDS ORDERED: POTASSIUM CHLO10 ME1 PO (12:32)
[2024-05-22] MEDS ORDERED: AMITRIPTYLINE H10 MG PO (12:32)
[2024-05-22] MEDS ORDERED: FUROSEMIDE20 MG PO (12:32)
[2024-05-22] MEDS ORDERED: TRAZODONE HCL50 MG PO (14:02)
[2024-05-22] MEDS ORDERED: HEParin SOD (PORCINE) 500 UNIT/5 ML ML IV ONE (14:15)
[2024-05-22 14:20] VITALS: BP 99/66
== END 2024-05-22 14:21 | disposition home or self-care (01) ==
LOC: ED 09:29
PROVIDERS: Emergency Medicine
DX: M54.50 Low back pain, unspecified (principal); G89.29 Other chronic pain; E11.9 Type 2 diabetes mellitus without complications; Z88.7 Allergy status to serum and vaccine; Z88.8 Allergy status to other drugs, medicaments and biological substances; Z91.041 Radiographic dye allergy status; Z88.5 Allergy status to narcotic agent; Z79.899 Other long term (current) drug therapy; Z79.4 Long term (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
CPT/HCPCS: 36415; 72131; 80053; 81003; 85025; 96374; 96375; 99283-25; J7030

== ENCOUNTER 2024-06-04 15:00 | Emergency (ER) | payer MEDICARE, OTHER ==
[~2024-06-04] VITALS: Ht 165.1 cm; Wt 120.0 kg
[~2024-06-04 15:00] MED LIST changes: +AMITRIPTYLINE H10 MG PO; +BUPRENORPHINE HC2 MG SL; +FUROSEMIDE20 MG PO; +POTASSIUM CHLO10 ME1 PO; +TRAZODONE HCL50 MG PO
--- OUTSIDE RECORDS SUMMARY | 2024-06-04 15:07 | XMS ---
PreManage Notification: PAPO GODFREY [employer] Surgical Services Asst Events No recent Security Events currently on file CRITERIA MET - 6 ED Visits in 6 Months - [facility] - 2 Visits in 30 Days - [facility] - 3 Facilities in 90 Days CARE PROVIDERS -, [facility] Dentist: Sign Board Erector [facility] PHONE: [phone] - [place]- Dentist: Sign Board Erector [facility] PHONE: [phone] MARY CASTILLO [facility]: [facility] PHONE: [phone] DIANNE VALENCIA Internal Medicine Current PHONE: Unknown DENISA BOWLING [facility] Current PHONE: Unknown IMANI DEWEY Internal Medicine Current PHONE: Unknown MD GENNA Nurse Practitioner: Gerontology Current PHONE: Unknown Magui has no Care Guidelines for this patient. Sherry VISIT COUNT (12 MO.) 9 ERIKA Melton 8 Mary JESUS) [address] [place] [address] [place] Pe[place]aus [place] TOTAL 22 NOTE: Visits indicate total known visits. ED/UCC VISIT TRACKING (12 MO.) 06/04/2024 15:00 ERIKA Valentino TYPE: Emergency COMPLAINT: - BACK PAIN 06/04/2024 08:13 [place] ([facility]) TYPE: Emergency DIAGNOSES: - Fall on same level, unspecified, initial encounter - Low back pain, unspecified - Pain in thoracic spine - Back Pain - Fall; Back Pain 05/22/2024 09:30 [place] TYPE: Emergency COMPLAINT: - LT LEG SWELLING DIAGNOSES: - Allergy status to narcotic agent - Allergy status to other drugs, medicaments and biological substances - Allergy status to serum and vaccine - [facility] (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 - Low back pain, unspecified - Other chronic pain - Other nursing home (current) drug therapy - Radiographic dye allergy status - Type 2 diabetes mellitus without complications 04/08/2024 08:20 [facility] TYPE: Emergency COMPLAINT: - EMS: Stroke DIAGNOSES: - Hemiplegic migraine, not intractable, without status migrainosus - Cerebrovascular Accident - stroke like symptoms 03/24/2024 17:46 Mary [place] ([facility]) TYPE: Emergency DIAGNOSES: - Low back pain, unspecified - Other chronic pain - Paraplegia, complete - Back Pain - Fall 01/23/2024 06:54 ERIKA [place] TYPE: Emergency COMPLAINT: - BACK PAIN DIAGNOSES: - Allergy status to analgesic agent - Allergy status to narcotic agent - Allergy status to other drugs, medicaments and biological substances - Allergy status to serum and vaccine - Infection following a procedure, other surgical site, initial encounter - 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 - Low back pain, unspecified - Other nursing home (current) drug therapy - Other surgical procedures as the cause of abnormal reaction of the patient, or of later complication, without mention of misadventure at the time of the procedure - Radiographic dye allergy status - Type 2 diabetes mellitus without complications 01/11/2024 22:56 [facility] TYPE: Emergency DIAGNOSES: - Dorsalgia, unspecified - Other complications of procedures, not elsewhere classified, initial encounter - Vomiting, unspecified - Post-op Problem 12/23/2023 21:43 [facility] TYPE: Emergency DIAGNOSES: - Fall on same level, unspecified, initial encounter - 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 - Low back [...] equina syndrome - Latex allergy status - 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 - Low back pain, unspecified - Other nursing home (current) drug therapy - Type 2 diabetes mellitus without complications 12/22/2023 10:35 Mary [facility] ([facility]) TYPE: Emergency DIAGNOSES: - Strain of muscle, fascia and tendon of lower back, initial encounter - Back Pain 12/16/2023 16:36 Mary [facility] [place] ([facility]) TYPE: Emergency DIAGNOSES: - Constipation, unspecified - intermodal truck driver (current) use of opiate analgesic - Nausea with vomiting, unspecified - Unspecified abdominal pain - Abdominal Pain - hard to breathe, body aches, vomitting, diabetic issues 12/09/2023 00:01 Mary Andrewsmercedes [place] ([facility]) TYPE: Emergency DIAGNOSES: - Cellulitis of right lower limb - 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 - Pain in thoracic spine - Type 2 diabetes mellitus with hyperglycemia - Back Pain - Flank Pain 11/12/2023 01:32 [facility] TYPE: Emergency DIAGNOSES: - Chronic pain [...] subsequent striking against object, initial encounter - 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 - 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 - Pain in left knee - Radiographic dye allergy status - Sprain of unspecified site of left knee, initial encounter - Type 2 diabetes mellitus without complications 09/27/2023 19:42 Mary [place] ([facility]) TYPE: Emergency DIAGNOSES: - Cellulitis of [...] unspecified stairs and steps, initial encounter - [facility] (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 - 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 - Overexertion from prolonged static or awkward postures, initial encounter - Pain in left shoulder - Radiographic dye allergy status - Strain of unspecified muscle, fascia and tendon at shoulder and upper arm level, left arm, initial encounter - Systemic lupus erythematosus, unspecified - Type 2 diabetes mellitus without complications 09/10/2023 17:09 ERIKA Valentino TYPE: Emergency COMPLAINT: - LT SHOULDER PAIN DIAGNOSES: - Allergy status to analgesic agent - Allergy status to narcotic agent - Allergy status to other drugs, medicaments and biological substances - Allergy status to serum and vaccine - Fall (on) (from) unspecified stairs and steps, initial encounter - [facility] (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 - 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 - Pain in left shoulder - Radiographic dye allergy status - Type 2 diabetes mellitus without complications - Unspecified sprain of left shoulder joint, initial encounter 08/22/2023 22:34 [facility] TYPE: Emergency DIAGNOSES: - Other low [...] unspecified - Full incontinence of feces - [facility] (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 - 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 TYPE: General Medicine COMPLAINT: - Weakness DIAGNOSES: - Weakness - Weakness [facility] DIAGNOSES: - Bacterial infection, [...] - Post surgical site abscess 01/11/2024 22:56 [facility] TYPE: Internal Medicine DIAGNOSES: - Dorsalgia, [...] residual deficits - Vomiting, unspecified 12/23/2023 21:43 [facility] TYPE: Surgery DIAGNOSES: - Bipolar disorder, current episode depressed, moderate - Fall on same level, unspecified, initial encounter - [facility] (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 - Low back pain, unspecified - Other low back pain - Other symptoms and signs involving the musculoskeletal system - Rash and other nonspecific skin eruption - Spinal stenosis, lumbar region without neurogenic claudication - Type 2 diabetes mellitus without complications 12/09/2023 00:01 Mary Cronin De[place]Dania [place] ([facility]) TYPE: General Medicine DIAGNOSES: - Arthrodesis status - Cellulitis of right lower limb - Cervicalgia - 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 - Lumbago with sciatica, left side - Osteomyelitis of vertebra, site unspecified - Other cervical disc degeneration, unspecified cervical region - Other chronic pain - Pain in thoracic spine - Patent foramen ovale - Type 2 diabetes mellitus with hyperglycemia 11/22/2023 14:56 [facility] [place] ([facility]) TYPE: General Medicine DIAGNOSES: - Lumbago with sciatica, left side - Pain, unspecified - Weakness 11/12/2023 01:32 [facility] DIAGNOSES: - Chronic pain syndrome - Fall on same level, unspecified, initial encounter - Low back pain, unspecified - Lumbago with sciatica, left side - Other chronic pain - Spinal stenosis, lumbar region without neurogenic claudication - Unsteadiness on feet 09/27/2023 19:42 Mary CAPELLAN ([facility] ) TYPE: Internal Medicine DIAGNOSES: - Cellulitis of right lower limb 08/22/2023 22:34 [facility] DIAGNOSES: - Anesthesia of [...] Type 2 diabetes mellitus with diabetic polyneuropathy [email or web address]
[2024-06-04] MEDS ORDERED: HYDROCODON-ACE1 EA11 PO (17:31)
[2024-06-04] MEDS ORDERED: PREGABALIN100 MG PO (17:32)
[2024-06-04] MEDS ORDERED: TOUJEO MAX300 UNIT/1 SQ (17:32)
[2024-06-04] MEDS ORDERED: OXYCODONE/APAP 5/325 TAB PO ONE (18:00)
[2024-06-04] MEDS ORDERED: HYDROmorphone HCL 1 MG/ML SYR IV ONE (19:45)
[2024-06-04] MEDS ORDERED: diphenhydrAMINE HCL 50 MG/ML VIAL IV ONE (20:30)
[2024-06-04] MEDS ORDERED: HYDROmorphone HCL 1 MG/ML SYR IV PRN (21:30)
[2024-06-04] MEDS ORDERED: PERCOCET 5-3251 EACH PO (22:24)
[2024-06-04] MEDS ORDERED: PROMETHAZINE HC25 M1 PO (22:25)
[2024-06-04] MEDS ORDERED: PROMETHAZINE HCL 25 MG HOME.PACK PO ONE (22:30)
[2024-06-04] MEDS ORDERED: OXYCODONE/ACETAMINOPHEN 1 TAB HOME.PACK PO ONE (22:30)
[2024-06-04 22:58] VITALS: BP 144/70
== END 2024-06-04 22:58 | disposition home or self-care (01) ==
LOC: ED 15:00
DX: S39.012A Strain of muscle, fascia and tendon of lower back, initial encounter (principal); G82.20 Paraplegia, unspecified; M32.9 Systemic lupus erythematosus, unspecified; E11.9 Type 2 diabetes mellitus without complications; Z99.3 Dependence on wheelchair; Z88.7 Allergy status to serum and vaccine; Z88.8 Allergy status to other drugs, medicaments and biological substances; Z88.5 Allergy status to narcotic agent; Z91.041 Radiographic dye allergy status; Z79.4 Long term (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; Z79.899 Other long term (current) drug therapy; W18.2XXA Fall in (into) shower or empty bathtub, initial encounter
CPT/HCPCS: 72128; 72131; 96374; 96375; 96376; 99283-25; J1171; J1200

== ENCOUNTER 2024-08-30 10:42 | Emergency (ER) | payer MEDICARE, OTHER ==
[~2024-08-30] VITALS: Ht 165.1 cm; Wt 117.9 kg
--- OUTSIDE RECORDS SUMMARY | ~2024-08-30 | XMS | Continuity of Care Document ---
Demographics + + + | Address | [address] | | | [place] [address] | + + + | Preferred Language | Unknown | + + + | Marital Status | | + + + | Congregational Affiliation | Unknown | + + + | Race | Unknown | + + + | Ethnic Group | Unknown | + + + Author + + + | Author | [facility] | + + + | Organization | [facility] | + + + | Address | [address] | | | [place] [address] | + + + | Phone | | + + + Care Team Providers + + + + | Care Carpet Layer Helper Name | Role | Phone | + [...] facility | + + + + | 2024-06-12 00:00 | Promethazine HCl 12.5 MG | [facility] | | | Oral Tablet | | + + + + | 2024-06-12 00:00 | Promethazine HCl 12.5 MG | [facility] | | | Oral Tablet | | + + + + | 2024-07-27 00:00 | Promethazine HCl 12.5 MG | [facility] | | | Oral Tablet | | + + + + | 2024-06-19 00:00 | Easy Touch Pen [place] 30G | [facility] | | | X 8 MM Miscellaneous | | + + + + | 2024-06-19 00:00 | Easy Touch Pen [place] 30G | [facility] | | | X 8 MM Miscellaneous | | + + + + | 2024-06-01 00:00 | 3 ML insulin glargine 300 | [facility] | | | UNT/ML Pen Injector | | | | [Dilip] | | + + + + | 2024-06-01 00:00 | 3 ML insulin glargine 300 | [facility] | | | UNT/ML Pen Injector | | | | [Toujeo] | | + + + + | 2024-06-01 00:00 | 3 ML insulin glargine 300 | [facility] | | | UNT/ML Pen Injector | | | | [Toujeo] | | + + + + | 2024-06-01 00:00 | Toyadychastity Max SoloStar 300 | [facility] | | | UNIT/ML Subcutaneous | | | | Solution Pen-injector | | + + + + | 2024-06-01 00:00 | Jerechastity Max SoloStar 300 | [facility] | | | UNIT/ML Subcutaneous | | | | Solution Pen-injector | | + + + + | 2024-06-01 00:00 | Dilip PinedooStar 300 | [facility] | | | UNIT/ML Subcutaneous | | | | Solution Pen-injector | | + + + + | 2024-06-19 00:00 | Insulin Syringe 29G X 1/2" | [facility] | | | 1 ML Miscellaneous | | + + + + | 2024-06-19 00:00 | Insulin Syringe 29G X 1/2" | [facility] | | | 1 ML Miscellaneous | | + + + + | 2024-06-01 00:00 | pregabalin 100 MG Oral | [facility] | | | Capsule | | + + + + | 2024-06-01 00:00 | pregabalin 100 MG Oral | [facility] | | | Capsule | | + + + + | 2024-06-01 00:00 | pregabalin 100 MG Oral | [facility] | | | Capsule | | + + + + | 2024-06-01 00:00 | HYDROcodone-Acetaminophen | [facility] | | | 7.5-325 MG Oral Tablet | | + + + + | 2024-06-01 00:00 | HYDROcodone-Acetaminophen | [facility] | | | 7.5-325 MG Oral Tablet | | + + + + | 2024-06-01 00:00 | HYDROcodone-Acetaminophen | [facility] | | | 7.5-325 MG Oral Tablet | | + + + + | 2024-06-29 00:00 | HYDROcodone-Acetaminophen | [facility] | | | 7.5-325 MG Oral Tablet | | + + + + | 2024-06-29 00:00 | HYDROcodone-Acetaminophen | [facility] | | | 7.5-325 MG Oral Tablet | | + + + + | 2024-07-31 00:00 | HYDROcodone-Acetaminophen | [facility] | | | 7.5-325 MG Oral Tablet | | + + + + | 2024-08-28 00:00 | HYDROcodone-Acetaminophen | [facility] | | | 7.5-325 MG Oral Tablet | | + + + + | 2024-06-01 00:00 | acetaminophen 325 MG / | [facility] | | | hydrocodone bitartrate 7.5 | | | | MG Oral Tablet | | + + + + | 2024-06-01 00:00 | acetaminophen 325 MG / | [facility] | | | hydrocodone bitartrate 7.5 | | | | MG Oral Tablet | | + + + + | 2024-06-01 00:00 | acetaminophen 325 MG / | [facility] | | | hydrocodone bitartrate 7.5 | | | | MG Oral Tablet | | + + + + | 2024-06-29 00:00 | acetaminophen 325 MG / | [facility] | | | hydrocodone bitartrate 7.5 | | | | MG Oral Tablet | | + + + + | 2024-06-29 00:00 | acetaminophen 325 MG / | [facility] | | | hydrocodone bitartrate 7.5 | | | | MG Oral Tablet | | + + + + | 2024-07-31 00:00 | acetaminophen 325 MG / | [facility] | | | hydrocodone bitartrate 7.5 | | | | MG Oral Tablet | | + + + + | 2024-08-28 00:00 | acetaminophen 325 MG / | [facility] | | | hydrocodone bitartrate 7.5 | | | | MG Oral Tablet | | + + + + | 2024-06-01 00:00 | Pregabalin 100 MG Oral | [facility] | | | Capsule | | + + + + | 2024-06-01 00:00 | Pregabalin 100 MG Oral | [facility] | | | Capsule | | + + + + | 2024-06-01 00:00 | Pregabalin 100 MG Oral | [facility] | | | Capsule | | + + + + | 2024-06-12 00:00 | promethazine hydrochloride | [facility] | | | 12.5 MG Oral Tablet | | + + + + | 2024-06-12 00:00 | promethazine hydrochloride | [facility] | | | 12.5 MG Oral Tablet | | + + + + | 2024-07-27 00:00 | promethazine hydrochloride | [facility] | | | 12.5 MG Oral Tablet | | + + + + Problems + + + + | date | description | facility | + + + + | 2024-08-16 06:29:21 | Encounter for screening | [facility] | | | for malignant neoplasm of | | | | colon | | + + + + | 2024-08-16 06:29:21 | Personal history of other | [facility] | | | malignant neoplasm of | | | | stomach | | + + + + | 2024-08-16 10:41:06 | Encounter for screening | [facility] | | | for malignant neoplasm of | | | | colon | | + + + + | 2024-08-16 10:41:06 | Personal history of other | [facility] | | | malignant neoplasm of | | | | stomach | | + + + + | 2024-08-30 00:00 | Low back pain (finding) | [facility] | | | | | + + + + | 2024-08-30 00:00 | Bronchitis (disorder) | [facility] | | | | | + + + + | 2024-08-30 00:00 | BRONCHITIS, NOT SPEC | [facility] | | | ACUTE OR CHRONIC | | + + + + | 2024-08-30 00:00 | NAUSEA WITH VOMITING | [facility] | | | | | + + + + | 2024-08-30 00:00 | DIARRHEA | [facility] | | | | | + + + + | 2024-08-30 00:00 | Bronchitis | [facility] | | | | | + + + + | 2024-08-30 00:00 | Lumbago | [facility] | | | | | + + + + | 2024-08-30 00:00 | Nausea with Vomiting | [facility] | | | | | + + + + | 2024-08-30 00:00 | Diarrhea | [facility] | | | | | + + + + Procedures + + + + | date | description | facility | + + + + | 2024-06-01 00:00 | Tobacco use assessed | [facility] | + + + + | 2024-06-01 00:00 | Tobacco use assessed | [facility] | | | | | + + + + | 2024-06-01 00:00 | Tobacco use assessed | [facility] | | | | | + + + + | 2024-06-29 00:00 | Tobacco use assessed | [facility] | | | | | + + + + | 2024-06-29 00:00 | Tobacco use assessed | [facility] | | | | | + + + + | 2024-08-30 00:00 | Tobacco use assessed | [facility] | | | | | + + + + | 2024-08-30 00:00 | Dilated Retinal Eye Exam | [facility] | | | W/ Interp W/O Retinopathy | | + + + + | 2024-06-29 00:00 | Controlling BP; | [facility] | | | recent Systolic BP | | | | 130-139mm Hg | | + + + + | 2024-06-29 00:00 | Controlling BP; | [facility] | | | recent Systolic BP | | | | 130-139mm Hg | | + + + + | 2024-08-30 00:00 | Controlling BP; | [facility] | | | recent Systolic BP | | | | 130-139mm Hg | | + + + + | 2024-06-01 00:00 | Controlling BP; [facility] | [facility] | | | recent Systolic BP > or | | | | Equal to 140mm | | + + + + | 2024-06-01 00:00 | Controlling BP; | [facility] | | | recent Systolic BP > or | | | | Equal to 140mm | | + + + + | 2024-06-01 00:00 | Controlling BP; | [facility] | | | recent Systolic BP > or | | | | Equal to 140mm | | + + + + | 2024-06-29 00:00 | Controlling BP; | [facility] | | | recent Diastolic BP btwn | | | | 80-89 mm Hg | | + + + + | 2024-06-29 00:00 | Controlling BP; | [facility] | | | recent Diastolic BP btwn | | | | 80-89 mm Hg | | + + + + | 2024-08-30 00:00 | Controlling BP; | [facility] | | | recent Diastolic BP btwn | | | | 80-89 mm Hg | | + + + + | 2024-06-01 00:00 | Controlling BP; [facility] | [facility] | | | recent Diastolic BP > or | | | | Equal to 90mm | | + + + + | 2024-06-01 00:00 | Controlling BP; Most | [facility] | | | recent Diastolic BP > or | | | | Equal to 90mm | | + + + + | 2024-06-01 00:00 | Controlling BP; Most | [facility] | | | recent Diastolic BP > or | | | | Equal to 90mm | | + + + + | 2024-06-01 00:00 | Negative Screen for | [facility] | | | Depression Symptoms (MDD) | | + + + + | 2024-06-01 00:00 | Negative Screen for | [facility] | | | Depression Symptoms (MDD) | | + + + + | 2024-06-01 00:00 | Negative Screen for | [facility] | | | Depression Symptoms (MDD) | | + + + + | 2024-06-29 00:00 | Negative Screen for | [facility] | | | Depression Symptoms (MDD) | | + + + + | 2024-06-29 00:00 | Negative Screen for | [facility] | | | Depression Symptoms (MDD) | | + + + + | 2024-08-30 00:00 | Negative Screen for | [facility] | | | Depression Symptoms (MDD) | | + + + + | 2024-06-01 00:00 | Hemoglobin Glycosylated | [facility] | | | A1C | | + + + + | 2024-06-01 00:00 | Hemoglobin Glycosylated | [facility] | | | A1C | | + + + + Results/Labs +--------+--------+ +---------+--------+---------+ | test | date | facility | value | unit | notes | +--------+--------+ +---------+--------+---------+ + + | Result panel 1 | + + + + + +-------+ + + | Hemoglobin | 2024-06-01 | [facility] | 9.3 | (missing) | (missing) | | [facility] | 10:30 | [facility] | | | | | | [facility] | | | | + + + +-------+ + + + + | Result panel 2 | + + + + + +-------+ + + | Hemoglobin | 2024-06-01 | [facility] | 9.3 | (missing) | (missing) | | [facility] | 10:30 | [facility] | | | | | | | [facility] | | | | + + + +-------+ + + + + | Hemoglobin A1C | + + + + + +-------+ + + | Hemoglobin | 2024-06-01 | [facility] | 9.3 | (missing) | (missing) | | [facility] | 10:30 | [facility] | | | | | | | [facility]. | | | | + + + +-------+ + + Social History + + + + | date | description | facility | + + + + | 2024-06-01 00:00 | Never smoked tobacco | [facility] | | | (finding) | | + + + + | 2024-06-01 00:00 | Unknown if ever smoked | [facility] | + + + + | 2024-06-29 00:00 | Never smoked tobacco | [facility] | | | (finding) | | + + + + | 2024-06-29 00:00 | Unknown if ever smoked | [facility] | | | | | + + + + | 2024-06-30 00:00 | Never smoked tobacco | [facility] | | | (finding) | | + + + + | 2024-06-30 00:00 | Unknown if ever smoked | [facility] | | | | | + + + + | 2024-07-11 00:00 | Unknown if ever smoked | [facility] | | | | | + + + + | 2024-08-30 00:00 | Unknown if ever smoked | [facility] | | | | | + + + + Vital Signs + + + +---------+ | date | measurement | value | units | + + + +---------+ | 2024-06-01 00:00 | BP_diastolic | 98 | mmHg | + + + +---------+ | 2024-06-01 00:00 | BP_systolic | 164 | mmHg | + + + +---------+ | 2024-06-01 00:00 | heart_rate | 85 | /min | + + + +---------+ | 2024-06-01 00:00 | height_metric | 165.1 | cm | + + + +---------+ | 2024-06-01 00:00 | height_standard | 65 | in | + + + +---------+ | 2024-06-01 00:00 | o2_saturation | 98 | % | + + + +---------+ | 2024-06-01 00:00 | respiration_rate | 16 | /min | + + + +---------+ | 2024-06-01 00:00 | temperature_metric | 36.33 | C | | | | | | + + + +---------+ | 2024-06-01 00:00 | | 97.4 | F | | | temperature_standar | | | | | d | | | + + + +---------+ | 2024-06-01 00:00 | BP_diastolic | 98 | mmHg | + + + +---------+ | 2024-06-01 00:00 | BP_systolic | 164 | mmHg | + + + +---------+ | 2024-06-01 00:00 | heart_rate | 85 | /min | + + + +---------+ | 2024-06-01 00:00 | height_metric | 165.1 | cm | + + + +---------+ | 2024-06-01 00:00 | height_standard | 65 | in | + + + +---------+ | 2024-06-01 00:00 | o2_saturation | 98 | % | + + + +---------+ | 2024-06-01 00:00 | respiration_rate | 16 | /min | + + + +---------+ | 2024-06-01 00:00 | temperature_metric | 36.33 | C | | | | | | + + + +---------+ | 2024-06-01 00:00 | | 97.4 | F | | | temperature_standar | | | | | d | | | + + + +---------+ | 2024-06-29 00:00 | BP_diastolic | 86 | mmHg | + + + +---------+ | 2024-06-29 00:00 | BP_systolic | 136 | mmHg | + + + +---------+ | 2024-06-29 00:00 | heart_rate | 79 | /min | + + + +---------+ | 2024-06-29 00:00 | height_metric | 165.1 | cm | + + + +---------+ | 2024-06-29 00:00 | height_standard | 65 | in | + + + +---------+ | 2024-06-29 00:00 | o2_saturation | 99 | % | + + + +---------+ | 2024-06-29 00:00 | respiration_rate | 16 | /min | + + + +---------+ | 2024-06-29 00:00 | temperature_metric | 36.72 | C | | | | | | + + + +---------+ | 2024-06-29 00:00 | | 98.1 | F | | | temperature_standar | | | | | d | | | + + + +---------+ | 2024-08-30 00:00 | BMI | 43.3 | 1 | + + + +---------+ | 2024-08-30 00:00 | BP_diastolic | 82 | mmHg | + + + +---------+ | 2024-08-30 00:00 | BP_systolic | 138 | mmHg | + + + +---------+ | 2024-08-30 00:00 | BSA | 2.2 | 1 | + + + +---------+ | 2024-08-30 00:00 | heart_rate | 88 | /min | + + + +---------+ | 2024-08-30 00:00 | height_metric | 165.1 | cm | + + + +---------+ | 2024-08-30 00:00 | height_standard | 65 | in | + + + +---------+ | 2024-08-30 00:00 | o2_saturation | 100 | % | + + + +---------+ | 2024-08-30 00:00 | respiration_rate | 22 | /min | + + + +---------+ | 2024-08-30 00:00 | temperature_metric | 36.83 | C | | | | | | + + + +---------+ | 2024-08-30 00:00 | | 98.3 | F | | | temperature_standar | | | | | d | | | + + + +---------+ | 2024-08-30 00:00 | weight_metric | 117.93 | kg | + + + +---------+ | 2024-08-30 00:00 | weight_standard | 260 | lb | + + + +---------+
[~2024-08-30 10:42] MED LIST changes: +HYDROCODON-ACE1 EA11 PO; +PERCOCET 5-3251 EACH PO; +PREGABALIN100 MG PO; +TOUJEO MAX300 UNIT/1 SQ
--- OUTSIDE RECORDS SUMMARY | 2024-08-30 10:46 | XMS ---
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 [place] PHONE: [phone] - [place]- Dentist: Inspector [employer] [facility] PHONE: [phone] JOE CARMICHAEL Nurse Practitioner: Family Current PHONE: [phone] MARY CASTILLO [facility]/[place]: [facility] PHONE: [phone] MACO Dwyer Internal Medicine Current PHONE: Unknown DIANNE VALENCIA Internal Medicine Current PHONE: Unknown [facility] PHONE: Unknown MD GENNA Nurse Practitioner: Gerontology Current PHONE: Unknown Magui has no Care Guidelines for this patient. E.DDania VISIT COUNT (12 MO.) 8 ERIKA Hoyos DarrylKnight ([facility]) 3 [facility] [address] [facility] 1 Sherita Zimmerman TOTAL 20 NOTE: Visits indicate total known visits. ED/UCC VISIT TRACKING (12 MO.) 08/30/2024 10:43 E[place]KA Jacques [place] TYPE: Emergency COMPLAINT: - COLD SYMPTOMS 07/23/2024 19:28 Mary AVILA [place] ([facility]) TYPE: Emergency DIAGNOSES: - Hemiplegic migraine, intractable, with status migrainosus - Hemiplegic migraine, intractable, with status migrainosus - Aphasia - Stroke like symptoms 06/21/2024 20:33 Sherita Brice [place] TYPE: Emergency COMPLAINT: - CP_CP 06/04/2024 15:00 ERIKA Valentino TYPE: Emergency COMPLAINT: - BACK PAIN DIAGNOSES: - Allergy status to narcotic agent - Allergy status to other drugs, medicaments and biological substances - Allergy status to serum and vaccine - Dependence on wheelchair - Fall in (into) shower or empty bathtub, initial encounter - 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 - Low back pain, unspecified - Other termite inspector (current) drug therapy - Paraplegia, unspecified - Radiographic dye allergy status - Strain of muscle, fascia and tendon of lower back, initial encounter - Systemic lupus erythematosus, unspecified - Type 2 diabetes mellitus without complications 06/04/2024 08:13 Mary AVILA [place] ([facility]) TYPE: Emergency DIAGNOSES: - Fall on same level, unspecified, initial encounter - Low back pain, unspecified - Pain in thoracic spine - Back Pain - Fall; Back Pain 05/22/2024 09:30 ERIKA Jacques [place] TYPE: Emergency COMPLAINT: - LT LEG SWELLING DIAGNOSES: - Allergy status to narcotic agent - Allergy status to other drugs, medicaments and biological substances - Allergy status to serum and vaccine - halfway (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 - Low back pain, unspecified - Other chronic pain - Other senior care (current) drug therapy - Radiographic dye allergy status - Type 2 diabetes mellitus without complications 04/08/2024 08:20 [facility] TYPE: Emergency COMPLAINT: - EMS: Stroke DIAGNOSES: - Hemiplegic migraine, not intractable, without status migrainosus - Cerebrovascular Accident - stroke like symptoms 03/24/2024 17:46 Mary AVILA [place] ([facility]) TYPE: Emergency DIAGNOSES: - Low back pain, [...] procedure, other surgical site, initial encounter - halfway (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 - Low back pain, unspecified - Other senior care (current) drug therapy - Other surgical procedures as the cause of abnormal reaction of the patient, or of later complication, without mention of misadventure at the time of the procedure - Radiographic dye allergy status - Type 2 diabetes mellitus without complications 01/11/2024 22:56 [facility] TYPE: Emergency DIAGNOSES: - Dorsalgia, unspecified - Other complications of procedures, not elsewhere classified, initial encounter - Vomiting, unspecified - Post-op Problem 12/23/2023 21:43 [facility] TYPE: Emergency DIAGNOSES: - Fall on same level, unspecified, initial encounter - 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 - Low back pain, unspecified - Other low back pain - Other symptoms and signs involving the musculoskeletal system - Rash and other nonspecific skin eruption - Type 2 diabetes mellitus without complications - Back Pain - Loss of rectal tone 12/23/2023 14:56 ERIKA Jacques [place] TYPE: Emergency COMPLAINT: - SOB, UPPER ABD PAIN DIAGNOSES: - Allergy status to narcotic agent - Allergy status to other drugs, medicaments and biological substances - Allergy status to serum and vaccine - Cauda equina syndrome - Latex allergy status - halfway (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 - Low back pain, unspecified - Other termite inspector (current) drug therapy - Type 2 diabetes mellitus without complications 12/22/2023 10:35 Mary AVILA [place] ([facility]) TYPE: Emergency DIAGNOSES: - Strain of muscle, fascia and tendon of lower back, initial encounter - Back Pain 12/16/2023 16:36 Mary AVILA [place] ([employer]) TYPE: Emergency DIAGNOSES: - Constipation, unspecified - halfway (current) use of opiate analgesic - Nausea with vomiting, unspecified - Unspecified abdominal pain - Abdominal Pain - hard to breathe, body aches, vomitting, diabetic issues 12/09/2023 00:01 Mary Darrylmercedes DeoDania AVILA [place] ([facility]) TYPE: Emergency DIAGNOSES: - Cellulitis of right lower limb - 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 - Pain in thoracic spine - Type 2 diabetes mellitus with hyperglycemia - Back Pain - Flank Pain 11/12/2023 01:32 [facility] TYPE: Emergency DIAGNOSES: - Chronic [...] subsequent striking against object, initial encounter - halfway (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 - Other termite inspector (current) drug therapy - Pain in left knee - Radiographic dye allergy status - Sprain of unspecified site of left knee, initial encounter - Type 2 diabetes mellitus without complications 09/27/2023 19:42 Mary AVILA [place] ([facility]) TYPE: Emergency DIAGNOSES: - Cellulitis of [...] stairs and steps, initial encounter - 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 Syncope and collapse 1. Polyp of stomach and duodenum 2. Malignant neoplasm of stomach, unspecified 3. Patent foramen ovale 4. Body mass index [BMI] 40.0-44.9, adult 5. Other diseases of stomach and duodenum 6. Heart failure, unspecified 7. Type 2 diabetes mellitus with hyperglycemia 8. Other chronic pain 9. Obesity, unspecified 10. Unspecified mood [affective] disorder 11. Anxiety disorder, unspecified 12. Hyperlipidemia, unspecified 13. 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 Allergy status to analgesic agent 15. Allergy status to narcotic agent 16. Allergy status to other drugs, medicaments and biological substances 17. Hormone replacement therapy 03/25/2024 03:34 [facility] TYPE: General Medicine COMPLAINT: - Weakness DIAGNOSES: - Weakness - Weakness [facility]24 [facility] DIAGNOSES: - Bacterial infection, unspecified [...] - Post surgical site abscess 01/11/2024 22:56 [facility] TYPE: Internal Medicine DIAGNOSES: - Dorsalgia, unspecified [...] residual deficits - Vomiting, unspecified 12/23/2023 21:43 [facility] TYPE: Surgery DIAGNOSES: - Bipolar disorder, current episode depressed, moderate - Fall on same level, unspecified, initial encounter - halfway (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 - Low back pain, unspecified - Other low back pain - Other symptoms and signs involving the musculoskeletal system - Rash and other nonspecific skin eruption - Spinal stenosis, lumbar region without neurogenic claudication - Type 2 diabetes mellitus without complications 12/09/2023 00:01 Mary AVILA [place] ([facility]) TYPE: General Medicine DIAGNOSES: - Arthrodesis status - Cellulitis of right lower limb - Cervicalgia - halfway (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 - Lumbago with sciatica, left side - Osteomyelitis of vertebra, site unspecified - Other cervical disc degeneration, unspecified cervical region - Other chronic pain - Pain in thoracic spine - Patent foramen ovale - Type 2 diabetes mellitus with hyperglycemia 11/22/2023 14:56 [facility] [place] ([place] ) TYPE: General Medicine DIAGNOSES: - Lumbago with sciatica, left side - Pain, unspecified - Weakness 11[facility]2023 01:32 [facility] DIAGNOSES: - Chronic pain syndrome - Fall on same level, unspecified, initial encounter - Low back pain, unspecified - Lumbago with sciatica, left side - Other chronic pain - Spinal stenosis, lumbar region without neurogenic claudication - Unsteadiness on feet 09/27/2023 19:42 Mary AVILA [place] ([facility]) TYPE: Internal Medicine DIAGNOSES: - Cellulitis of right lower limb [email or web address]
[2024-08-30] MEDS ORDERED: SODIUM CHLORIDE 0.9% 1,000 ML IV ONE (11:00)
[2024-08-30 11:42] LABS: BASOPHILS 0.7 % (0-2); EOSINOPHILS 2.5 % (0-6); HEMOGLOBIN 13.1 g/dL (12.0-18.0); LYMPHOCYTES 24.6 % (24-44); MCH 29.2 (27-36); MCHC 34.6 g/dl (30-36); MCV 84.4 fl (81-99); MONOCYTES 6.8 % (0-12); NEUTROPHILS 65.4 % (39-80); PLATELET COUNT 305 K/uL (140-440); RDW 15.3 (10.5-15.0)
[2024-08-30 11:53] LABS: INFLUENZA B NAA NEGATIVE (NEGATIVE); RESPIRATORY SYNCYTIAL VIR NAA NEGATIVE (NEGATIVE)
[2024-08-30] MEDS ORDERED: PROMETHAZINE HCL 25 MG TAB PO ONE (12:00)
[2024-08-30 12:02] LABS: ALBUMIN 3.3 g/dL (3.4-5.0); ALBUMIN/GLOBULIN RATIO 0.7 (1.1-2.4); ANION GAP 14.3 (7-21); BILIRUBIN, TOTAL 0.3 ng/dL (0.2-1.0); BUN/CREATININE RATIO 21.91 (6.0-28.6); CALCIUM 9.5 mg/dL (8.5-10.1); CREATININE, SERUM 0.73 mg/dL (0.55-1.02); POTASSIUM 4.3 mmol/L (3.5-5.1)
[2024-08-30] MEDS ORDERED: HYDROmorphone HCL 1 MG/ML SYR IV ONE (13:15)
[2024-08-30 13:49] VITALS: BP 130/96
== END 2024-08-30 13:49 | disposition home or self-care (01) ==
LOC: ED 10:42
PROVIDERS: Emergency Medicine
DX: J11.1 Influenza due to unidentified influenza virus with other respiratory manifestations (principal); M54.50 Low back pain, unspecified; G89.29 Other chronic pain; G82.22 Paraplegia, incomplete; M32.9 Systemic lupus erythematosus, unspecified; E11.9 Type 2 diabetes mellitus without complications; Z98.1 Arthrodesis status; Z99.3 Dependence on wheelchair; Z88.7 Allergy status to serum and vaccine; Z88.8 Allergy status to other drugs, medicaments and biological substances; Z88.6 Allergy status to analgesic agent; Z91.041 Radiographic dye allergy status; Z88.5 Allergy status to narcotic agent; Z79.4 Long term (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; Z79.899 Other long term (current) drug therapy
CPT/HCPCS: 36415; 71045; 72100; 80053; 85025; 87502; 96374; 99285-25; J1171; J7030; U0002

== ENCOUNTER 2025-02-15 00:52 | Emergency (ER) | payer MEDICARE ==
[~2025-02-15] VITALS: Ht 165.1 cm; Wt 133.4 kg
--- OUTSIDE RECORDS SUMMARY | ~2025-02-15 | XMS | Continuity of Care Document ---
Demographics + + + | Address | [address] | | | [place] [address] | + + + | Preferred Language | Unknown | + + + | Marital Status | | + + + | Yarsanism Affiliation | Unknown | + + + | Race | Unknown | + + + | Ethnic Group | Unknown | + + + Author + + + | Author | [facility] | + + + | Organization | [facility] | + + + | Address | [address] | | | [place] [address] | + + + | Phone | | + + + Care Team Providers + + + + | Care Mophead Sewer Name | Role | Phone | + + + + Unavailable | Unavailable | + + + + Unavailable | Unavailable | + + + + Allergies No information. Encounters No information. Functional Status No information. Immunizations No information. Medications + + + + | date | description | facility | + + + + | 2024-11-20 00:00 | Promethazine HCl 12.5 MG | [facility] | | | Oral Tablet | | + + + + | 2024-11-20 00:00 | EpiPen 2-Homer 0.3 MG/0.3ML | [facility] | | | Injection Solution | | | | Auto-injector | | + + + + | 2024-11-20 00:00 | Easy Touch Pen [place] 30G | [facility] | | | X 8 MM Miscellaneous | | + + + + | 2024-11-20 00:00 | Insulin Aspart 100 UNIT/ML | [facility] | | | Injection Solution | | + + + + | 2024-11-20 00:00 | Insulin Degludec FlexTouch | [facility] | | | 100 UNIT/ML Subcutaneous | | | | Solution Pen-injector | | + + + + | 2024-11-20 00:00 | insulin aspart, human 100 | [facility] | | | UNT/ML Injectable Solution | | + + + + | 2024-11-20 00:00 | tizanidine 4 MG Oral | [facility] | | | Tablet | | + + + + | 2024-11-20 00:00 | escitalopram 20 MG Oral | [facility] | | | Tablet | | + + + + | 2024-11-20 00:00 | tiZANidine HCl 4 MG Oral | [facility] | | | Tablet | | + + + + | 2024-11-20 00:00 | Insulin Syringe 29G X 1/2" | [facility] | | | 1 ML Miscellaneous | | + + + + | 2024-11-20 00:00 | Atorvastatin Calcium 40 MG | [facility] | | | Oral Tablet | | + + + + | 2024-11-20 00:00 | atorvastatin 40 MG Oral | [facility] | | | Tablet | | + + + + | 2024-11-20 00:00 | [id number] 0.3 ML | [facility] | | | epinephrine 1 MG/ML | | | | Auto-Injector [Epipen] | | + + + + | 2024-11-20 00:00 | Escitalopram Oxalate 20 MG | [facility] | | | Oral Tablet | | + + + + | 2024-11-29 00:00 | HYDROcodone-Acetaminophen | [facility] | | | 7.5-325 MG Oral Tablet | | + + + + | 2024-11-29 00:00 | acetaminophen 325 MG / | [facility] | | | hydrocodone bitartrate 7.5 | | | | MG Oral Tablet | | + + + + | 2024-11-20 00:00 | promethazine hydrochloride | [facility] | | | 12.5 MG Oral Tablet | | + + + + Problems No information. Procedures + + + + | date | description | facility | + + + + | 2024-11-20 00:00 | Tobacco use assessed | [facility] | | | | | + + + + | 2024-11-20 00:00 | Patient Screened for | [facility] | | | Future Fall Risk; 2 or More | | | | Falls | | + + + + | 2024-11-20 00:00 | Discharge Medication | [facility] | | | Reconciled W/Current Med | | | | List | | + + + + | 2024-11-20 00:00 | HbA1c Level 8.0% to less | [facility] | | | than or equal to 9.0% | | + + + + | 2024-11-20 00:00 | Controlling BP; Most | [facility] | | | recent Systolic BP | | | | 130-139mm Hg | | + + + + | 2024-11-20 00:00 | Controlling BP; Most | [facility] | | | recent Diastolic BP < 80mm | | | | Hg | | + + + + | 2024-11-20 00:00 | Negative Screen for | [facility] | | | Depression Symptoms (MDD) | | + + + + | 2024-11-20 00:00 | Hemoglobin Glycosylated | [facility] | | | A1C | | + + + + | 2024-12-14 00:00 | Established Patient VIDEO | [facility] | | | Moderate | | + + + + Results/Labs +--------+--------+ +---------+--------+---------+ | test | date | facility | value | unit | notes | +--------+--------+ +---------+--------+---------+ + + | Result panel 1 | + + + + + +-------+ + + | Hemoglobin | 2024-11-20 | [facility] | 8.8 | (missing) | (missing) | [facility] | 13:48 [facility] | | | | + + + +-------+ + + Social History + + + + | date | description | facility | + + + + | (no date) | Unknown if ever smoked | [facility] | | | | | + + + + Vital Signs + + +---------+---------+ | date | measurement | value | units | + + +---------+---------+ | 2024-11-20 00:00 | BP_diastolic | 78 | mmHg | + + +---------+---------+ | 2024-11-20 00:00 | BP_systolic | 132 | mmHg | + + +---------+---------+ | 2024-11-20 00:00 | heart_rate | 88 | /min | + + +---------+---------+ | 2024-11-20 00:00 | height_metric | 165.1 | cm | + + +---------+---------+ | 2024-11-20 00:00 | height_standard | 65 | in | + + +---------+---------+ | 2024-11-20 00:00 | o2_saturation | 96 | % | + + +---------+---------+ | 2024-11-20 00:00 | respiration_rate | 20 | /min | + + +---------+---------+ | 2024-11-20 00:00 | temperature_metric | 37.5 | C | | | | | | + + +---------+---------+ | 2024-11-20 00:00 | | 99.5 | F | | | temperature_standar | | | | | d | | | + + +---------+---------+ | 2024-12-14 00:00 | height_metric | 165.1 | cm | + + +---------+---------+ | 2024-12-14 00:00 | height_standard | 65 | in | + + +---------+---------+
--- OUTSIDE RECORDS SUMMARY | 2025-02-15 00:59 | XMS ---
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 No recent Security Events currently on file CRITERIA MET - 6 ED Visits in 6 Months - [facility] - 2 Visits in 30 Days - [facility] - 3 Facilities in 90 Days CARE PROVIDERS -[facility] Dentist: Engineer And Geologist [facility] PHONE: [phone] - [place]- Dentist: Engineer And Geologist [facility] PHONE: [phone] KALEY JARRETT Nurse Practitioner: Family Current PHONE: [phone] MARY CASTILLO [facility]/[place]: [facility] PHONE: [phone] MACO Dwyer Internal Medicine Current PHONE: Unknown PETTY BANDA Physician Torch Straightener Cooper RAMIREZ PHONE: [phone] DIANNE VALENCIA Internal Medicine Current PHONE: Unknown Sheryl TRIPATHI Assistant Operator/Supply Chain Consultant Current PHONE: [phone] KIKI WILSON Nurse Practitioner: Adult [facility] [place] PHONE: [phone] DENISA BOWLING Family Medicine Current PHONE: Unknown MD GENNA Nurse Practitioner: Gerontology Current PHONE: Unknown ILIR TOMAS Family Medicine Current PHONE: Unknown Magui has no Care Guidelines for this patient. Sherry VISIT COUNT (12 MO.) 4 ERIKA Melton 3 Mary JESUS) 3 [facility] [address] [facility] TOTAL 13 NOTE: Visits indicate total known visits. ED/UCC VISIT TRACKING (12 MO.) 02/15/2025 00:53 [place] [place] TYPE: Emergency COMPLAINT: - FALL 01/27/2025 09:11 [facility] TYPE: Emergency DIAGNOSES: - Difficulty in walking, not elsewhere classified - Low back pain, unspecified - Other chronic pain - Pain, unspecified - Back Pain - Fall - Incontinence 12/08/2024 13:34 [facility] TYPE: Emergency DIAGNOSES: - Chest pain, unspecified - Epigastric pain - Chest pain 11/29/2024 17:01 [facility] COMPLAINT: - Fall_GLF - PAIN IN LEFT HIP - PAIN IN LEFT KNEE DIAGNOSES: 0. Pain in left hip 1. Contusion of left knee, initial encounter 4. Contusion of left hip, initial encounter 5. Contusion of lower back and pelvis, initial encounter 6. Morbid (severe) obesity due to excess calories 7. Type 2 diabetes mellitus without complications 8. 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 Body mass index [BMI] 45.0-49.9, adult 10. Fall on same level, unspecified, initial encounter 11. Unspecified place in unspecified non-institutional (private) residence as the place of occurrence of the external cause 11/11/2024 10:18 [facility] TYPE: Emergency DIAGNOSES: - Fall on same level, unspecified, initial encounter - Pain in left hip - Pain in unspecified hip - Pain, unspecified - Hip Pain - Lump 08/30/2024 10:43 ERIKA Valentino TYPE: Emergency COMPLAINT: - COLD SYMPTOMS DIAGNOSES: - Allergy status to analgesic agent - Allergy status to narcotic agent - Allergy status to other drugs, medicaments and biological substances - Allergy status to serum and vaccine - Arthrodesis status - Dependence on wheelchair - Influenza due to unidentified influenza virus with other respiratory manifestations - cash application clerk (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 - Low back pain, unspecified - Other chronic pain - Other senior living (current) drug therapy - Paraplegia, incomplete - Radiographic dye allergy status - Systemic lupus erythematosus, unspecified - Type 2 diabetes mellitus without complications - Weakness 07/23/2024 19:28 Mary [place] ([facility]) TYPE: Emergency DIAGNOSES: - Hemiplegic migraine, intractable, with status migrainosus - Hemiplegic migraine, intractable, with status migrainosus - Aphasia - Stroke like symptoms 06/21/2024 20:33 Sherita LYONS TYPE: Emergency COMPLAINT: - CP_CP 06/04/2024 15:00 [facility] [place] TYPE: Emergency COMPLAINT: - BACK PAIN DIAGNOSES: - Allergy status to narcotic agent - Allergy status to other drugs, medicaments and biological substances - Allergy status to serum and vaccine - Dependence on wheelchair - Fall in (into) shower or empty bathtub, initial encounter - [facility] (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 - Low back pain, unspecified - Other customer support associate (current) drug therapy - Paraplegia, unspecified - Radiographic dye allergy status - Strain of muscle, fascia and tendon of lower back, initial encounter - Systemic lupus erythematosus, unspecified - Type 2 diabetes mellitus without complications 06/04/2024 08:13 [place] ([facility]) TYPE: Emergency DIAGNOSES: - Fall on same [...] Allergy status to serum and vaccine - [facility] (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 - Low back pain, unspecified - Other chronic pain - Other senior living (current) drug therapy - Radiographic dye allergy status - Type 2 diabetes mellitus without complications 04/08/2024 08:20 [facility] TYPE: Emergency COMPLAINT: - EMS: Stroke DIAGNOSES: - Hemiplegic migraine, not intractable, without status migrainosus - Cerebrovascular Accident - stroke like symptoms 03/24/2024 17:46 Mary CAPELLAN ([facility]) TYPE: Emergency DIAGNOSES: - Low back pain, unspecified - Other chronic pain - Paraplegia, complete - Back Pain - Fall INPATIENT VISIT TRACKING (12 MO.) 01/27/2025 09:11 [facility] TYPE: Internal Medicine DIAGNOSES: - Cauda equina syndrome - Cellulitis of right lower limb - Depression, unspecified - Difficulty in walking, not elsewhere classified - Encounter for palliative care - Low back pain, unspecified - Lumbago with sciatica, left side - Other cervical disc degeneration, unspecified cervical region - Other chronic pain - Other intervertebral disc displacement, lumbar region - Other malaise - Pain, unspecified - Spinal stenosis, lumbar region with neurogenic claudication - Other intervertebral disc degeneration, lumbar region without mention of lumbar back pain or lower extremity pain 11/11/2024 10:18 [facility] TYPE: Internal Medicine DIAGNOSES: - Fall on same level, unspecified, initial encounter - Pain in left hip - Pain, unspecified 06[facility]21[facility]24 [facility] TYPE: Medical Surgical COMPLAINT: - CP_CP DIAGNOSES: [...] Anxiety disorder, unspecified 12. Hyperlipidemia, unspecified 13. [facility] (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 14. Allergy status to analgesic agent 15. Allergy status to narcotic agent 16. Allergy status to other drugs, medicaments and biological substances 17. Hormone replacement therapy 03/25/2024 03:34 [facility] TYPE: General Medicine COMPLAINT: - Weakness DIAGNOSES: - Weakness - Weakness [email or web address]
[2025-02-15] MEDS ORDERED: HYDROmorphone HCL 1 MG/ML SYR IV PRN ×2 (01:00→02:30)
[2025-02-15] MEDS ORDERED: PROCHLORPERAZINE EDISYLATE 10 MG/2 ML VIAL IV ONE (01:30)
[2025-02-15] MEDS ORDERED: LIDOCAINE HCL 4% 1 EACH PATCH TD ONE (01:30)
[2025-02-15] MEDS ORDERED: HEParin SOD (PORCINE) 500 UNIT/5 ML ML IV ONE ×2 (01:30→08:00)
[2025-02-15] MEDS ORDERED: HYDROmorphone HCL 1 MG/ML SYR IV ONE (01:30)
[2025-02-15 08:07] VITALS: BP 185/81
[2025-02-16] MEDS ORDERED: DILAUDID2 MG PO (04:13)
[2025-02-16] MEDS ORDERED: LYRICA75 MG PO (04:13)
[2025-02-16] MEDS ORDERED: LASIX40 MG PO (07:16)
== END 2025-02-15 08:07 | disposition home or self-care (01) ==
LOC: ED 00:52
DX: S40.022A Contusion of left upper arm, initial encounter (principal); M54.6 Pain in thoracic spine; Z88.7 Allergy status to serum and vaccine; Z88.8 Allergy status to other drugs, medicaments and biological substances; Z91.041 Radiographic dye allergy status; Z79.899 Other long term (current) drug therapy; W19.XXXA Unspecified fall, initial encounter
CPT/HCPCS: 73060; 96374; 96375; 96376; 99283-25; A9270; J0780; J1171

== ENCOUNTER 2025-02-16 02:28 | Emergency (ER) | payer MEDICARE, OTHER ==
[~2025-02-16] VITALS: Ht 165.1 cm; Wt 133.4 kg
--- OUTSIDE RECORDS SUMMARY | ~2025-02-16 | XMS | Continuity of Care Document ---
Demographics + + + | Address | [address] | | | [place] [address] | + + + | Preferred Language | Unknown | + + + | Marital Status | | + + + | Latter-Day Affiliation | Unknown | + + + | Race | Unknown | + + + | Ethnic Group | Unknown | + + + Author + + + | Author | [facility] | + + + | Organization | [facility] | + + + | Address | [address] | | | [place] [address] | + + + | Phone | | + + + Care Team Providers + + + + | Care Asl Interpreter Name | Role | Phone | + [...] | 2024-11-20 00:00 | Easy Touch Pen [place] 30G | [facility] | | | X 8 MM Miscellaneous | | + + + + | 2024-11-20 00:00 | Insulin Aspart 100 UNIT/ML | [facility] | | | Injection Solution | | + + + + | 2024-11-20 00:00 | Insulin Degludec FlexTouch | [facility] | | | 100 UNIT/ML Subcutaneous | | | | Solution Pen-injector | | + + + + | 2024-11-20 00:00 | insulin aspart, human 100 | [facility] | | | UNT/ML Injectable Solution | | + + + + | 2024-11-20 00:00 | tizanidine 4 MG Oral | [facility] | | | Tablet | | + + + + | 2024-11-20 00:00 | escitalopram 20 MG Oral | [facility] | | | Tablet | | + + + + | 2024-11-20 00:00 | tiZANidine HCl 4 MG Oral | [facility] | | | Tablet | | + + + + | 2024-11-20 00:00 | Insulin Syringe 29G X 1/2" | [facility] | | | [...] + + + | 2024-11-20 00:00 | [id number] 0.3 ML | [facility] | | | epinephrine 1 MG/ML | | | | Auto-Injector [Epipen] | | + + + + | 2024-11-20 00:00 | Escitalopram Oxalate 20 MG | [facility] | | | Oral [...] date) | Unknown if ever smoked | [facility] | | | | [...]
--- OUTSIDE RECORDS SUMMARY | 2025-02-16 02:34 | XMS ---
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 No recent Security Events currently on file CRITERIA MET - 6 ED Visits in 6 Months - [facility] - 2 Visits in 30 Days - [facility] - 3 Facilities in 90 Days CARE PROVIDERS -[facility] Dentist: Community Cultural Development Officer [facility] PHONE: [phone] - [place]- Dentist: Community Cultural Development Officer [facility] PHONE: [phone] KALEY JARRETT Nurse Practitioner: Family Current PHONE: [phone] MARY CASTILLO [facility]: [facility] PHONE: [phone] MACO Dwyer Internal Medicine Current PHONE: Unknown PETTY ABNDA Physician [place] [facility] RAMIREZ PHONE: [phone] DIANNE VLAENCIA Internal Medicine Current PHONE: Unknown Sheryl TRIPATHI Estate Planning Counselor/Fender Finisher Current PHONE: [phone] KIKI WILSON Nurse Practitioner: Adult Health [facility] PHONE: [phone] DENISA BOWLING Family Medicine Current PHONE: Unknown MD GENNA Nurse Practitioner: Gerontology Current PHONE: Unknown ILIR TOMAS Family Medicine Current PHONE: Unknown [facility] has no Care Guidelines for this patient. Sherry VISIT COUNT (12 MO.) 5 ERIKA Zamora) 3 [facility] [address] [facility] TOTAL 14 NOTE: Visits indicate total known visits. ED/UCC VISIT TRACKING (12 MO.) 02/16/2025 02:28 [facility] [place] TYPE: Emergency COMPLAINT: - BACK PAIN 02/15/2025 00:53 [facility] [place] TYPE: Emergency COMPLAINT: - FALL 01/27/2025 09:11 [facility] TYPE: Emergency DIAGNOSES: - Difficulty in walking, not elsewhere classified - Low back pain, unspecified - Other chronic pain - Pain, unspecified - Back Pain - Fall - Incontinence 12/08/2024 13:34 [facility] TYPE: Emergency DIAGNOSES: - Chest pain, unspecified - Epigastric pain - Chest pain 11/29[facility]2024 17:01 [facility]: [facility] COMPLAINT: - Fall_GLF - PAIN IN LEFT HIP - PAIN IN LEFT KNEE DIAGNOSES: 0. Pain in left hip 1. Contusion of left knee, initial encounter 4. Contusion of left hip, initial encounter 5. Contusion of lower back and pelvis, initial encounter 6. Morbid (severe) obesity due to excess calories 7. Type 2 diabetes mellitus without complications 8. 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 Body mass index [BMI] 45.0-49.9, adult 10. Fall on same level, unspecified, initial encounter 11. Unspecified place in unspecified non-institutional (private) residence as the place of occurrence of the external cause 11/11/2024 10:18 [facility] TYPE: Emergency DIAGNOSES: - Fall [...] influenza virus with other respiratory manifestations - senior care (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 - Low back pain, unspecified - Other chronic pain - Other rat exterminator (current) drug therapy - Paraplegia, incomplete - Radiographic dye allergy status - Systemic lupus erythematosus, unspecified - Type 2 diabetes mellitus without complications - Weakness 07/23/2024 19:28 [facility] [place] ([facility]) TYPE: Emergency DIAGNOSES: - Hemiplegic migraine, intractable, with status migrainosus - Hemiplegic migraine, intractable, with status migrainosus - Aphasia - Stroke like symptoms 06/21/2024 20:33 [facility] TYPE: Emergency COMPLAINT: - CP_CP 06/04/2024 15:00 ERIKA Valentino TYPE: Emergency COMPLAINT: - BACK PAIN DIAGNOSES: - Allergy status to narcotic agent - Allergy status to other drugs, medicaments and biological substances - Allergy status to serum and vaccine - Dependence on wheelchair - Fall in (into) shower or empty bathtub, initial encounter - senior care (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 - Low back pain, unspecified - Other rat exterminator (current) drug therapy - Paraplegia, unspecified - Radiographic dye allergy status - Strain of muscle, fascia and tendon of lower back, initial encounter - Systemic lupus erythematosus, unspecified - Type 2 diabetes mellitus without complications 06/04/2024 08:13 [facility] [place] ([facility] ) TYPE: Emergency DIAGNOSES: - Fall on same level, unspecified, initial encounter - Low back pain, unspecified - Pain in thoracic spine - Back Pain - Fall; Back Pain 05/22/2024 09:30 ERIKA Valentino TYPE: Emergency COMPLAINT: - LT LEG SWELLING DIAGNOSES: - Allergy status to narcotic agent - Allergy status to other drugs, medicaments and biological substances - Allergy status to serum and vaccine - 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 TYPE: Emergency COMPLAINT: - EMS: Stroke DIAGNOSES: - Hemiplegic migraine, not intractable, without status migrainosus - Cerebrovascular Accident - stroke like symptoms 03/24/2024 17:46 [facility] [place] ([facility]) TYPE: Emergency DIAGNOSES: - Low back pain, unspecified - Other chronic pain - Paraplegia, complete - Back Pain - Fall INPATIENT VISIT TRACKING (12 MO.) 01/27/2025 09:11 [facility] TYPE: Internal Medicine DIAGNOSES: - Cauda equina [...] pain or lower extremity pain 11/11/2024 10:18 [facility] TYPE: Internal Medicine DIAGNOSES: - Fall on same level, unspecified, initial encounter - Pain in left hip - Pain, unspecified 06/21/2024 20:33 Sherita LYONS TYPE: Medical Surgical COMPLAINT: - CP_CP DIAGNOSES: [...] Anxiety disorder, unspecified 12. Hyperlipidemia, unspecified 13. senior care (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 14. Allergy status to analgesic agent 15. Allergy status to narcotic agent 16. Allergy status to other drugs, medicaments and biological substances 17. Hormone replacement therapy 03/25/2024 03:34 [facility] TYPE: General Medicine COMPLAINT: - Weakness DIAGNOSES: - Weakness - Weakness [email or web address]
[2025-02-16] MEDS ORDERED: PREGABALIN 75 MG CAP PO ONE (03:30)
[2025-02-16] MEDS ORDERED: predniSONE 20 MG TAB PO ONE (03:30)
[2025-02-16] MEDS ORDERED: LYRICA75 MG PO (04:13)
[2025-02-16] MEDS ORDERED: DILAUDID2 MG PO (04:13)
[2025-02-16] MEDS ORDERED: HYDROmorphone HCL 2 MG HOME.PACK PO ONE (04:15)
[2025-02-16] MEDS ORDERED: methylPREDNISolone 4 MG HOME.PACK PO ONE (04:15)
[2025-02-16] MEDS ORDERED: PROMETHAZINE HCL 50 MG/ML SDV IM ONE (05:00)
[2025-02-16] MEDS ORDERED: LASIX40 MG PO (07:16)
[2025-02-16] MEDS ORDERED: LORazepam 0.5 MG TAB PO ONE (07:30)
[2025-02-16 08:15] VITALS: BP 124/67
== END 2025-02-16 09:50 | disposition home or self-care (01) ==
LOC: ED 02:28
DX: M54.16 Radiculopathy, lumbar region (principal); Z79.4 Long term (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; Z88.7 Allergy status to serum and vaccine; Z88.8 Allergy status to other drugs, medicaments and biological substances; Z91.041 Radiographic dye allergy status; Z79.899 Other long term (current) drug therapy
CPT/HCPCS: 96372; 99283; J2550; J7512